=== PATIENT | female | born 1960 | race Caucasian/White ===

== ENCOUNTER 2017-11-19 16:07 | Inpatient (IN) | payer MEDICARE, OTHER ==
[~2017-11-19] VITALS: Ht 160 cm; Wt 119.8 kg
[~2017-11-19 16:07] MED LIST: AMOCLA875 PO; BCOIRO PO; BUPR150ER PO; BUPR150T2 PO; BUPR75 PO; Bactrim Ds Tab1 EACH PO; CEPH500 PO; CIPR.3TO OS; CIPR250 PO; CLIN300 PO; DULO60; GATI5OPSO OS; HYDACE25S PR; HYDACE5 PO; HYDACE5325 PO; HYDCOR1TOA TOP; HYDMOR2 PO; HYDR1TAB94 PO; HYOS.125 SL; IBUP600 PO; K-Dur20 MEQ PO; LEVSOD125; LEVSOD125 PO; LISI20 PO; LORA1 PO; Lasix20 MG PO; Lasix40 MG PO; Norco 5-325 Ta1 EACH PO; OXYACE10 PO; OXYACE5T PO; OXYC10ER PO; PROM25 PO; Pepcid40 MG PO; RXHYD5325 PO; RXHYDMOR2 PO; RXOXYACE PO; SPIR50 PO; SULTRIDS PO; Synthroid/Levo0.2 MG PO; Synthroid175 MCG PO; TRIHYD253A; [UNRECOGNIZED DRUG - REMARK]
[2017-11-19 16:46] LABS: BASOPHILS ABSOLUTE AUTO 0.03 K/mm3 (0.00-0.23); BASOPHILS PERCENT AUTO 1 % (0-2); EOSINOPHILS PERCENT AUTO 3 % (0-6); Hematocrit 30.1 % (33.0-51.0); Hemoglobin 9.9 g/dL (11.5-16.0); IMMATURE GRAN ABSOLUTE AUTO 0.08 K/mm3 (0.00-0.10); IMMATURE GRAN PERCENT AUTO 1 % (0-1); LYMPHOCYTES ABSOLUTE AUTO 1.53 K/mm3 (0.84-5.20); LYMPHOCYTES PERCENT AUTO 24 % (21-46); MONOCYTES ABSOLUTE AUTO 0.68 K/mm3 (0.16-1.47); MONOCYTES PERCENT AUTO 11 % (4-13); Mean Corpuscular HGB 30.8 pg (26.0-34.0); Mean Corpuscular HGB Conc 32.9 g/dL (31.5-36.5); Mean Corpuscular Volume 94 fL (80-100); NEUTROPHILS ABSOLUTE AUTO 3.83 K/mm3 (1.96-9.15); NEUTROPHILS PERCENT AUTO 60 % (41-73); Platelet Count 204 K/mm3 (150-400); RDW Coefficient Variation 19.8 % (11.7-14.2); RDW Standard Deviation 67.3 fL (35.1-46.3); Red Blood Cell Count 3.21 M/mm3 (3.80-5.20); White Blood Cell Count 6.35 K/mm3 (4.00-11.30)
[2017-11-19 16:50] LABS: Calcium, Ionized (POC) 1.15 mmol/L (1.10-1.46); Chloride (POC) 104 mmol/L (98-108); Creatinine (POC) 2.6 mg/dL (0.6-1.0); Glucose (ISTAT POC) 104 mg/dL (70-99); Hemoglobin (POC) 10.2 g/dL (12.0-16.0); Potassium (POC) 4.8 mmol/L (3.5-5.5); Sodium (POC) 132 mmol/L (135-148); Total CO2 (POC) 16 mmol/L (21-32)
[2017-11-19 16:54] LABS: PCO2 Arterial 27.8 mmHg (35-45); PO2 Arterial 111 mmHg (80-100); pH Blood Arterial 7.31 (7.35-7.45)
[2017-11-19 17:02] LABS: International Normalized Ratio 0.98; Prothrombin Time Results 10.2 Sec (9.7-11.5)
[2017-11-19 17:10] LABS: Albumin, Blood 3.2 g/dL (3.4-5.0); Bilirubin, Total 0.2 mg/dL (0.1-1.0); Bun/Creatinine Ratio 34.8 (12.0-20.0); Calcium, Blood 8.2 mg/dL (8.5-10.1); Creatinine, Blood 2.27 mg/dL (0.40-1.00); Globulin, Blood 3.3 g/dL (2.2-4.0); Potassium, Blood 4.7 mmol/L (3.5-5.5); Total Protein, Blood 6.5 g/dL (6.4-8.2)
[2017-11-19] MEDS ORDERED: CITA20 PO (17:21)
[2017-11-19] MEDS ORDERED: PROM25 PO (17:22)
[2017-11-19] MEDS ORDERED: DULOXETINE HCL20 MG PO (17:23)
[2017-11-19] MEDS ORDERED: FURO40 PO ×2 (17:23→21:18)
[2017-11-19 17:24] LABS: Influenza A Negative (NEGATIVE); Influenza B Negative (NEGATIVE)
[2017-11-19 17:38] LABS: Source, Urine Catheter
[2017-11-19 17:41] LABS: Blood, Urine 3+ (Neg); Glucose Qualitative, Urine Neg (Neg); Ketones, Urine Neg (Neg); Leukocyte Esterase, Urine Neg (Neg); Nitrite, Urine Neg (Neg); Protein, Urine 3+ (Neg); Urobilinogen, Urine NORM (Normal)
[2017-11-19 17:55] LABS: Appearance, Urine Hazy (Clear); Color, Urine Yellow (P-Yellow)
[2017-11-19 17:56] LABS: Amorphous Mod (0-Heavy); Bacteria Few /hpf; Red Blood Cells, Urine 0-2 /hpf (0-2); Squamous Epithelial Cells Mod /hpf (Few); White Blood Cells, Urine 0-2 /hpf (0-5)
[2017-11-19 18:40] LABS: Thyroid Stimulating Hormone 0.065 uIU/mL (0.360-4.800)
[2017-11-19 19:27] LABS: Percent Saturation 29.5 % (15.0-50.0)
[2017-11-19] MEDS ORDERED: ALPR.5 PO (21:15)
[2017-11-19] MEDS ORDERED: Excedrin Extra1 EACH PO (21:17)
[2017-11-19] MEDS ORDERED: HYDR1TAB94 PO (21:20)
[2017-11-19] MEDS ORDERED: FURO80 PO (21:25)
[2017-11-19] MEDS ORDERED: ALBU90OI INH (21:31)
[2017-11-20 01:58] LABS: U Amphetamine Screen Not Detected; U Barbituate Screen Not Detected; U Benzodiazapine Screen Not Detected; U Buprenorphine Screen Not Detected; U Cannabinoids Screen Not Detected; U Cocaine Screen Not Detected; U Methadone Screen Not Detected; U Methamphetamine Screen Not Detected; U Opiates Screen Not Detected; U Oxycodone Screen DETECTED; U Phencyclidine Screen Not Detected; U Propoxyphene Screen Not Detected
[2017-11-20 05:31] LABS: BASOPHILS ABSOLUTE AUTO 0.02 K/mm3 (0.00-0.23); BASOPHILS PERCENT AUTO 0 % (0-2); EOSINOPHILS ABSOLUTE AUTO 0.15 K/mm3 (0.00-0.68); EOSINOPHILS PERCENT AUTO 3 % (0-6); Hematocrit 29.1 % (33.0-51.0); Hemoglobin 9.3 g/dL (11.5-16.0); IMMATURE GRAN ABSOLUTE AUTO 0.07 K/mm3 (0.00-0.10); IMMATURE GRAN PERCENT AUTO 2 % (0-1); LYMPHOCYTES ABSOLUTE AUTO 0.83 K/mm3 (0.84-5.20); LYMPHOCYTES PERCENT AUTO 17 % (21-46); MONOCYTES ABSOLUTE AUTO 0.67 K/mm3 (0.16-1.47); MONOCYTES PERCENT AUTO 14 % (4-13); Mean Corpuscular HGB 30.7 pg (26.0-34.0); Mean Corpuscular Volume 96 fL (80-100); Mean Platelet Volume 8.8 fL (9.1-12.4); NEUTROPHILS ABSOLUTE AUTO 3.05 K/mm3 (1.96-9.15); NEUTROPHILS PERCENT AUTO 64 % (41-73); Platelet Count 175 K/mm3 (150-400); RDW Coefficient Variation 20.3 % (11.7-14.2); RDW Standard Deviation 70.6 fL (35.1-46.3); Red Blood Cell Count 3.03 M/mm3 (3.80-5.20); White Blood Cell Count 4.79 K/mm3 (4.00-11.30)
[2017-11-20 05:45] LABS: Albumin, Blood 2.9 g/dL (3.4-5.0); Anion Gap 9 mmol/L (6-16); Blood Urea Nitrogen 61 mg/dL (8-24); Bun/Creatinine Ratio 58.1 (12.0-20.0); CO2, Blood 21 mmol/L (21-32); Calcium, Blood 7.6 mg/dL (8.5-10.1); Chloride, Blood 110 mmol/L (98-108); Creatinine, Blood 1.05 mg/dL (0.40-1.00); Glomerular Filtration Rate 57 (60-); Glucose, Blood 106 mg/dL (70-99); Magnesium, Blood 1.9 mg/dL (1.6-2.4); Phosphorus, Blood 3.9 mg/dL (2.5-4.9); Potassium, Blood 4.1 mmol/L (3.5-5.5); Sodium, Blood 140 mmol/L (136-145)
[2018-05-20] MEDS ORDERED: CYCL10 PO (08:27)
[2018-05-20] MEDS ORDERED: Percocet 5-3251 EACH PO (08:27)
[2018-08-17] MEDS ORDERED: FURO40 PO (09:14)
[2018-08-17] MEDS ORDERED: LOSA50 PO (09:14)
[2018-08-17] MEDS ORDERED: LEVSOD150 PO (09:14)
[2018-08-17] MEDS ORDERED: Omeprazole20 M1 PO (09:15)
[2018-08-17] MEDS ORDERED: HYDR1TAB94 PO (11:11)
[2018-08-17] MEDS ORDERED: Ativan1 MG SL (11:11)
[2018-08-21] MEDS ORDERED: LORA1 PO (22:07)
[2018-08-21] MEDS ORDERED: SPIR50 PO (22:08)
[2018-09-16] MEDS ORDERED: DULO30 (11:00)
[2018-09-16] MEDS ORDERED: Zofran Odt4 MG SL (13:33)
[2018-09-16] MEDS ORDERED: K-Dur20 MEQ PO (13:33)
[2018-09-16] MEDS ORDERED: MAGOXI400 PO (13:33)
[2018-09-16] MEDS ORDERED: Lasix40 MG PO (13:33)
== END 2017-11-21 11:13 | disposition home or self-care (01) | DRG 683 ==
LOC: ER 16:07 → MEDS 18:27 → ER 20:44 → MEDS 20:44 → ENPENDDIS 11-21 11:13
PROVIDERS: Emergency Medicine; Internal Medicine
DX: N17.9 Acute kidney failure, unspecified (principal); I50.30 Unspecified diastolic (congestive) heart failure; E66.01 Morbid (severe) obesity due to excess calories; E87.2 Acidosis; I13.0 Hypertensive heart and chronic kidney disease with heart failure and stage 1 through stage 4 chronic kidney disease, or unspecified chronic kidney disease; D64.9 Anemia, unspecified; E86.0 Dehydration; I95.1 Orthostatic hypotension; F10.20 Alcohol dependence, uncomplicated; E03.9 Hypothyroidism, unspecified; G47.33 Obstructive sleep apnea (adult) (pediatric); N18.3 Chronic kidney disease, stage 3 (moderate); Z98.84 Bariatric surgery status; Z79.899 Other long term (current) drug therapy
CPT/HCPCS: 36415; 36600; 51702; 71045; 71250; 74176; 80047; 80053; 80069; 81001; 82272; 82550; 82607; 82728; 82746; 82803; 83540; 83550; 83605; 83735; 84443; 85014; 85025; 85610; 85730; 86850; 86900; 86901; 87040; 87077; 87086; 87186; 87493; 87804; 93005; 93010; 94762; 96361; 96374; 96375; 99285; C9113; G0480; J0696; J1650; J2405; J7030

== ENCOUNTER 2017-12-25 00:42 | Emergency (ER) | payer MEDICARE, OTHER ==
[~2017-12-25] VITALS: Ht 160 cm; Wt 113.4 kg
[~2017-12-25 00:42] MED LIST changes: +ALBU90OI INH; +ALPR.5 PO; +CITA20 PO; +DULOXETINE HCL20 MG PO; +Excedrin Extra1 EACH PO; +FURO40 PO; +FURO80 PO
[2017-12-25 01:16] LABS: BASOPHILS ABSOLUTE AUTO 0.07 K/mm3 (0.00-0.23); BASOPHILS PERCENT AUTO 1 % (0-2); EOSINOPHILS ABSOLUTE AUTO 0.62 K/mm3 (0.00-0.68); EOSINOPHILS PERCENT AUTO 9 % (0-6); Hematocrit 33.8 % (33.0-51.0); IMMATURE GRAN ABSOLUTE AUTO 0.06 K/mm3 (0.00-0.10); IMMATURE GRAN PERCENT AUTO 1 % (0-1); LYMPHOCYTES ABSOLUTE AUTO 2.43 K/mm3 (0.84-5.20); LYMPHOCYTES PERCENT AUTO 36 % (21-46); MONOCYTES PERCENT AUTO 9 % (4-13); Mean Corpuscular HGB 29.4 pg (26.0-34.0); Mean Corpuscular HGB Conc 32.5 g/dL (31.5-36.5); Mean Corpuscular Volume 90 fL (80-100); Mean Platelet Volume 8.4 fL (9.1-12.4); NEUTROPHILS ABSOLUTE AUTO 3.01 K/mm3 (1.96-9.15); NEUTROPHILS PERCENT AUTO 44 % (41-73); Platelet Count 256 K/mm3 (150-400); RDW Standard Deviation 53.4 fL (35.1-46.3); Red Blood Cell Count 3.74 M/mm3 (3.80-5.20); White Blood Cell Count 6.79 K/mm3 (4.00-11.30)
[2017-12-25 01:35] LABS: Alanine Aminotransfer (ALT/SGP 24 U/L (12-78); Albumin, Blood 3.4 g/dL (3.4-5.0); Albumin/Globulin Ratio 0.8 (0.8-1.8); Alk Phos 109 U/L (50-136); Anion Gap 13 mmol/L (6-16); Aspartate Aminotrans (AST/SGOT 32 U/L (12-37); Bilirubin, Total 0.3 mg/dL (0.1-1.0); Blood Urea Nitrogen 25 mg/dL (8-24); Bun/Creatinine Ratio 30.6 (12.0-20.0); CO2, Blood 21 mmol/L (21-32); Calcium, Blood 8.2 mg/dL (8.5-10.1); Chloride, Blood 99 mmol/L (98-108); Creatinine, Blood 0.82 mg/dL (0.40-1.00); Globulin, Blood 4.1 g/dL (2.2-4.0); Glomerular Filtration Rate >60 (60-); Glucose, Blood 92 mg/dL (70-99); Potassium, Blood 3.7 mmol/L (3.5-5.5); Sodium, Blood 133 mmol/L (136-145); Total Protein, Blood 7.5 g/dL (6.4-8.2); Troponin I <0.015 ng/mL (0.000-0.040)
[2018-05-20] MEDS ORDERED: Percocet 5-3251 EACH PO (08:27)
[2018-05-20] MEDS ORDERED: CYCL10 PO (08:27)
[2018-08-17] MEDS ORDERED: LEVSOD150 PO (09:14)
[2018-08-17] MEDS ORDERED: FURO40 PO (09:14)
[2018-08-17] MEDS ORDERED: LOSA50 PO (09:14)
[2018-08-17] MEDS ORDERED: Omeprazole20 M1 PO (09:15)
[2018-08-17] MEDS ORDERED: Ativan1 MG SL (11:11)
[2018-08-17] MEDS ORDERED: HYDR1TAB94 PO (11:11)
[2018-08-21] MEDS ORDERED: LORA1 PO (22:07)
[2018-08-21] MEDS ORDERED: SPIR50 PO (22:08)
[2018-09-16] MEDS ORDERED: DULO30 (11:00)
[2018-09-16] MEDS ORDERED: MAGOXI400 PO (13:33)
[2018-09-16] MEDS ORDERED: Zofran Odt4 MG SL (13:33)
[2018-09-16] MEDS ORDERED: Lasix40 MG PO (13:33)
[2018-09-16] MEDS ORDERED: K-Dur20 MEQ PO (13:33)
== END 2017-12-25 03:30 | disposition home or self-care (01) ==
LOC: ER 00:42
PROVIDERS: Emergency Medicine
DX: M79.601 Pain in right arm (principal); I13.0 Hypertensive heart and chronic kidney disease with heart failure and stage 1 through stage 4 chronic kidney disease, or unspecified chronic kidney disease; I50.9 Heart failure, unspecified; N18.3 Chronic kidney disease, stage 3 (moderate); F32.9 Major depressive disorder, single episode, unspecified; Z79.899 Other long term (current) drug therapy; Z87.891 Personal history of nicotine dependence
CPT/HCPCS: 36415; 71046; 80053; 83690; 83880; 84484; 85025; 93005; 93010; 99283

== ENCOUNTER 2018-06-18 09:56 | Emergency (ER) | payer MEDICARE ==
[~2018-06-18] VITALS: Ht 160 cm; Wt 124.7 kg
[~2018-06-18 09:56] MED LIST changes: +CYCL10 PO; +Percocet 5-3251 EACH PO
== END 2018-06-18 10:55 | disposition home or self-care (01) ==
LOC: ER 09:56
DX: S80.01XA Contusion of right knee, initial encounter (principal); F32.9 Major depressive disorder, single episode, unspecified; I11.0 Hypertensive heart disease with heart failure; I50.9 Heart failure, unspecified; N18.9 Chronic kidney disease, unspecified; E03.9 Hypothyroidism, unspecified; Z79.899 Other long term (current) drug therapy; Z87.891 Personal history of nicotine dependence; W19.XXXA Unspecified fall, initial encounter
CPT/HCPCS: 73564; 99283-25

== ENCOUNTER 2018-12-09 08:13 | Emergency (ER) | payer MEDICARE, SELFPAY ==
[~2018-12-09] VITALS: Ht 160 cm; Wt 128.8 kg
[~2018-12-09 08:13] MED LIST changes: +Ativan1 MG SL; +DULO30; +LEVSOD150 PO; +LOSA50 PO; +MAGOXI400 PO; +Omeprazole20 M1 PO; +Zofran Odt4 MG SL
[2018-12-09] MEDS ORDERED: HYDHCL25 PO (08:37)
[2018-12-09] MEDS ORDERED: DULOXETINE HCL20 MG PO (08:38)
[2018-12-09] MEDS ORDERED: LEVSOD150 PO (08:38)
[2018-12-09] MEDS ORDERED: Vitamin B-121000 MCG PO (08:38)
[2018-12-09 08:52] LABS: BASOPHILS ABSOLUTE AUTO 0.12 K/mm3 (0.00-0.23); BASOPHILS PERCENT AUTO 2 % (0-2); EOSINOPHILS ABSOLUTE AUTO 0.44 K/mm3 (0.00-0.68); EOSINOPHILS PERCENT AUTO 6 % (0-6); Hematocrit 40.5 % (33.0-51.0); IMMATURE GRAN ABSOLUTE AUTO 0.03 K/mm3 (0.00-0.10); IMMATURE GRAN PERCENT AUTO 0 % (0-1); LYMPHOCYTES ABSOLUTE AUTO 1.71 K/mm3 (0.84-5.20); LYMPHOCYTES PERCENT AUTO 24 % (21-46); MONOCYTES ABSOLUTE AUTO 0.62 K/mm3 (0.16-1.47); MONOCYTES PERCENT AUTO 9 % (4-13); Mean Corpuscular HGB 31.9 pg (26.0-34.0); Mean Corpuscular HGB Conc 32.1 g/dL (31.5-36.5); Mean Corpuscular Volume 100 fL (80-100); Mean Platelet Volume 9.3 fL (9.1-12.4); NEUTROPHILS ABSOLUTE AUTO 4.24 K/mm3 (1.96-9.15); NEUTROPHILS PERCENT AUTO 59 % (41-73); Platelet Count 447 K/mm3 (150-400); RDW Coefficient Variation 15.3 % (11.7-14.2); RDW Standard Deviation 56.2 fL (35.1-46.3); Red Blood Cell Count 4.07 M/mm3 (3.80-5.20); White Blood Cell Count 7.16 K/mm3 (4.00-11.30)
[2018-12-09 08:57] LABS: Source, Urine Clean Catch
[2018-12-09 09:07] LABS: Blood, Urine 1+ (Neg); Glucose Qualitative, Urine Neg (Neg); Ketones, Urine 1+ (Neg); Leukocyte Esterase, Urine 3+ (Neg); Nitrite, Urine Pos (Neg); Protein, Urine 2+ (Neg); Urobilinogen, Urine 1+ (Normal)
[2018-12-09 09:13] LABS: Alanine Aminotransfer (ALT/SGP 22 U/L (12-78); Albumin/Globulin Ratio 0.8 (0.8-1.8); Alk Phos 221 U/L (50-136); Anion Gap 14 mmol/L (6-16); Aspartate Aminotrans (AST/SGOT 58 U/L (12-37); Bilirubin, Total 0.7 mg/dL (0.1-1.0); Blood Urea Nitrogen 3 mg/dL (8-24); Bun/Creatinine Ratio 5.3 (12.0-20.0); CO2, Blood 22 mmol/L (21-32); Calcium, Blood 8.6 mg/dL (8.5-10.1); Chloride, Blood 104 mmol/L (98-108); Creatinine, Blood 0.57 mg/dL (0.40-1.00); Globulin, Blood 3.8 g/dL (2.2-4.0); Glomerular Filtration Rate >60 (60-); Glucose, Blood 105 mg/dL (70-99); Sodium, Blood 140 mmol/L (136-145); Total Protein, Blood 6.8 g/dL (6.4-8.2); Troponin I 0.015 ng/mL (0.000-0.040)
[2018-12-09 09:38] LABS: Bilirubin, Urine 1+ (Neg)
[2018-12-09 09:39] LABS: Appearance, Urine Turbid (Clear); Color, Urine Yellow (P-Yellow)
[2018-12-09 09:41] LABS: Bacteria Many /hpf; Red Blood Cells, Urine 0-2 /hpf (0-2); Squamous Epithelial Cells Many /hpf (Few); White Blood Cells, Urine 25-50 /hpf (0-5)
[2018-12-09] MEDS ORDERED: Zofran4 MG PO (10:47)
[2018-12-09] MEDS ORDERED: Macrobid 100 M100 MG PO (10:47)
== END 2018-12-09 11:04 | disposition home or self-care (01) ==
LOC: ER 08:13
PROVIDERS: Emergency Medicine
DX: K44.9 Diaphragmatic hernia without obstruction or gangrene (principal); K76.0 Fatty (change of) liver, not elsewhere classified; E87.6 Hypokalemia; F32.9 Major depressive disorder, single episode, unspecified; I13.0 Hypertensive heart and chronic kidney disease with heart failure and stage 1 through stage 4 chronic kidney disease, or unspecified chronic kidney disease; I50.9 Heart failure, unspecified; N18.9 Chronic kidney disease, unspecified; E03.9 Hypothyroidism, unspecified; Z87.891 Personal history of nicotine dependence; Z79.899 Other long term (current) drug therapy
CPT/HCPCS: 36415; 74177; 80053; 81001; 83690; 83735; 83880; 84484; 85025; 87077; 87086; 87186; 93005; 93010; 96361-59; 96374-59; 96376-59; 99284-25; J2405; J7030; Q9967

== ENCOUNTER 2018-12-13 17:34 | Inpatient (IN) | payer MEDICARE, SELFPAY ==
[~2018-12-13] VITALS: Ht 160 cm; Wt 128.4 kg
[~2018-12-13 17:34] MED LIST changes: +HYDHCL25 PO; +Macrobid 100 M100 MG PO; +Vitamin B-121000 MCG PO; +Zofran4 MG PO
[2018-12-13 18:10] LABS: Source, Urine Clean Catch
[2018-12-13 18:21] LABS: BASOPHILS ABSOLUTE AUTO 0.09 K/mm3 (0.00-0.23); BASOPHILS PERCENT AUTO 1 % (0-2); EOSINOPHILS PERCENT AUTO 2 % (0-6); Hematocrit 39.1 % (33.0-51.0); Hemoglobin 12.8 g/dL (11.5-16.0); IMMATURE GRAN ABSOLUTE AUTO 0.05 K/mm3 (0.00-0.10); IMMATURE GRAN PERCENT AUTO 1 % (0-1); LYMPHOCYTES ABSOLUTE AUTO 1.41 K/mm3 (0.84-5.20); LYMPHOCYTES PERCENT AUTO 17 % (21-46); MONOCYTES ABSOLUTE AUTO 0.71 K/mm3 (0.16-1.47); MONOCYTES PERCENT AUTO 8 % (4-13); Mean Corpuscular HGB 31.7 pg (26.0-34.0); Mean Corpuscular HGB Conc 32.7 g/dL (31.5-36.5); Mean Platelet Volume 9.3 fL (9.1-12.4); NEUTROPHILS ABSOLUTE AUTO 5.97 K/mm3 (1.96-9.15); NEUTROPHILS PERCENT AUTO 71 % (41-73); Platelet Count 401 K/mm3 (150-400); RDW Coefficient Variation 15.7 % (11.7-14.2); RDW Standard Deviation 56.1 fL (35.1-46.3); Red Blood Cell Count 4.04 M/mm3 (3.80-5.20); White Blood Cell Count 8.43 K/mm3 (4.00-11.30)
[2018-12-13 18:32] LABS: Alanine Aminotransfer (ALT/SGP 24 U/L (12-78); Albumin, Blood 2.8 g/dL (3.4-5.0); Albumin/Globulin Ratio 0.8 (0.8-1.8); Alk Phos 237 U/L (50-136); Anion Gap 10 mmol/L (6-16); Aspartate Aminotrans (AST/SGOT 79 U/L (12-37); Bilirubin, Total 0.8 mg/dL (0.1-1.0); Blood Urea Nitrogen 3 mg/dL (8-24); Bun/Creatinine Ratio 6.4 (12.0-20.0); CO2, Blood 24 mmol/L (21-32); Calcium, Blood 8.5 mg/dL (8.5-10.1); Chloride, Blood 104 mmol/L (98-108); Creatinine, Blood 0.47 mg/dL (0.40-1.00); Globulin, Blood 3.5 g/dL (2.2-4.0); Glomerular Filtration Rate >60 (60-); Glucose, Blood 111 mg/dL (70-99); Potassium, Blood 2.8 mmol/L (3.5-5.5); Sodium, Blood 138 mmol/L (136-145); Total Protein, Blood 6.3 g/dL (6.4-8.2)
[2018-12-13 18:36] LABS: Appearance, Urine Hazy (Clear); Blood, Urine 1+ (Neg); Color, Urine Yellow (P-Yellow); Glucose Qualitative, Urine Neg (Neg); Ketones, Urine 1+ (Neg); Leukocyte Esterase, Urine 2+ (Neg); Nitrite, Urine Neg (Neg); Protein, Urine 2+ (Neg); Specific Gravity, Urine 1.025 (1.003-1.022); Urobilinogen, Urine 3+ (Normal)
[2018-12-13 18:45] LABS: Mean Corpuscular Volume 97 fL (80-100)
[2018-12-13 18:54] LABS: Bilirubin, Urine 2+ (Neg)
[2018-12-13 18:57] LABS: Bacteria Many /hpf; Squamous Epithelial Cells Few /hpf (Few); Yeast/Fungi Urine Few /hpf
[2018-12-13 20:51] LABS: Influenza A Negative (NEGATIVE); Influenza B Negative (NEGATIVE)
[2018-12-14 04:58] LABS: BASOPHILS ABSOLUTE AUTO 0.07 K/mm3 (0.00-0.23); BASOPHILS PERCENT AUTO 1 % (0-2); EOSINOPHILS ABSOLUTE AUTO 0.23 K/mm3 (0.00-0.68); EOSINOPHILS PERCENT AUTO 3 % (0-6); Hematocrit 36.5 % (33.0-51.0); IMMATURE GRAN ABSOLUTE AUTO 0.03 K/mm3 (0.00-0.10); IMMATURE GRAN PERCENT AUTO 0 % (0-1); LYMPHOCYTES ABSOLUTE AUTO 1.56 K/mm3 (0.84-5.20); LYMPHOCYTES PERCENT AUTO 21 % (21-46); MONOCYTES ABSOLUTE AUTO 0.74 K/mm3 (0.16-1.47); MONOCYTES PERCENT AUTO 10 % (4-13); Mean Corpuscular HGB 32.3 pg (26.0-34.0); Mean Corpuscular HGB Conc 32.9 g/dL (31.5-36.5); Mean Corpuscular Volume 98 fL (80-100); Mean Platelet Volume 9.2 fL (9.1-12.4); NEUTROPHILS ABSOLUTE AUTO 4.66 K/mm3 (1.96-9.15); NEUTROPHILS PERCENT AUTO 64 % (41-73); Platelet Count 331 K/mm3 (150-400); RDW Coefficient Variation 15.6 % (11.7-14.2); RDW Standard Deviation 56.9 fL (35.1-46.3); Red Blood Cell Count 3.72 M/mm3 (3.80-5.20); White Blood Cell Count 7.29 K/mm3 (4.00-11.30)
[2018-12-14 05:19] LABS: Anion Gap 7 mmol/L (6-16); Blood Urea Nitrogen 3 mg/dL (8-24); Bun/Creatinine Ratio 5.6 (12.0-20.0); CO2, Blood 26 mmol/L (21-32); Chloride, Blood 107 mmol/L (98-108); Creatinine, Blood 0.54 mg/dL (0.40-1.00); Glomerular Filtration Rate >60 (60-); Glucose, Blood 86 mg/dL (70-99); Potassium, Blood 3.3 mmol/L (3.5-5.5); Sodium, Blood 140 mmol/L (136-145)
[2018-12-14 14:00] LABS: U Amphetamine Screen Not Detected; U Barbituate Screen Not Detected; U Benzodiazapine Screen DETECTED; U Buprenorphine Screen Not Detected; U Cannabinoids Screen Not Detected; U Cocaine Screen Not Detected; U Methadone Screen Not Detected; U Methamphetamine Screen Not Detected; U Opiates Screen Not Detected; U Oxycodone Screen Not Detected; U Phencyclidine Screen Not Detected; U Propoxyphene Screen Not Detected
[2018-12-14 15:25] LABS: Adenovirus F 40/41 Not Detected (NOT DETECT); Astrovirus Not Detected (NOT DETECT); Campylobacter Sp Not Detected (NOT DETECT); Cryptosporidium Not Detected (NOT DETECT); Cyclospora Cayetanensis Not Detected (NOT DETECT); E. Coli O157 Not Detected (NOT DETECT); Entamoeba Histolytica Not Detected (NOT DETECT); Enteroaggregative E. coli-EAEC Not Detected (NOT DETECT); Enteropathogenic E. coli-EPEC Not Detected (NOT DETECT); Enterotoxigenic E. coli-ETEC Not Detected (NOT DETECT); Giardia Lamblia Not Detected (NOT DETECT); Norovirus GI/GII Not Detected (NOT DETECT); Plesiomonas Shigelloides Not Detected (NOT DETECT); Rotavirus A Not Detected (NOT DETECT); Salmonella Sp Not Detected (NOT DETECT); Sapovirus Not Detected (NOT DETECT); Shiga Toxin-prod E. coli-STEC Not Detected (NOT DETECT); Shigella/Enteroin E. coli-EIEC Not Detected (NOT DETECT); Vibrio Cholerae Not Detected (NOT DETECT); Vibrio Sp Not Detected (NOT DETECT); Yersinia Enterocolitica Not Detected (NOT DETECT)
--- NOTE | 2018-12-14 17:17 | NUR ---
PATIENT ADMITTED FOR UTI AND PERSISENT N/V/D. GI PANEL SENT AND IT WAS NEGATIVE. PATIENT HAS NOT VOMITTED SINCE ADMISSION, PHENERGAN GIVEN X1 FOR NAUSEA. SKIN INTACT. 22G TO L HAND WNL AND SL. A/O X4, UP INDEPENDENTLY IN ROOM. CALM AND COOPERATIVE WITH CARE. CALLS APPROPRIATELY FOR ASSISTANCE. DR. CALVILLO CONTACTED TO CONSULT FOR THIS PATIENT. VSS, LUNGS CLEAR/DIM ON RA. TOLERATING CLEAR LIQUID DIET.
--- NOTE | 2018-12-14 18:50 | NUR ---
PATIENT HAVING FACIAL SWELLING AND ITCHING AFTER VANCOMYCIN GIVEN. DR. PURCELL NOTIFIED AND VANCOMYCIN WAS STOPPED. BENADRYL ORDERED TO TREAT ITCHING.
[2018-12-15 02:13] LABS: BASOPHILS ABSOLUTE AUTO 0.06 K/mm3 (0.00-0.23); BASOPHILS PERCENT AUTO 1 % (0-2); EOSINOPHILS ABSOLUTE AUTO 0.32 K/mm3 (0.00-0.68); EOSINOPHILS PERCENT AUTO 5 % (0-6); Hematocrit 33.6 % (33.0-51.0); IMMATURE GRAN ABSOLUTE AUTO 0.03 K/mm3 (0.00-0.10); IMMATURE GRAN PERCENT AUTO 1 % (0-1); LYMPHOCYTES ABSOLUTE AUTO 1.29 K/mm3 (0.84-5.20); LYMPHOCYTES PERCENT AUTO 22 % (21-46); MONOCYTES ABSOLUTE AUTO 0.66 K/mm3 (0.16-1.47); MONOCYTES PERCENT AUTO 11 % (4-13); Mean Corpuscular HGB 32.6 pg (26.0-34.0); Mean Corpuscular HGB Conc 32.7 g/dL (31.5-36.5); Mean Corpuscular Volume 100 fL (80-100); Mean Platelet Volume 9.2 fL (9.1-12.4); NEUTROPHILS PERCENT AUTO 60 % (41-73); Platelet Count 268 K/mm3 (150-400); RDW Coefficient Variation 15.9 % (11.7-14.2); RDW Standard Deviation 58.5 fL (35.1-46.3); Red Blood Cell Count 3.37 M/mm3 (3.80-5.20); White Blood Cell Count 5.96 K/mm3 (4.00-11.30)
[2018-12-15 02:27] LABS: Albumin, Blood 2.4 g/dL (3.4-5.0); Anion Gap 5 mmol/L (6-16); Blood Urea Nitrogen 2 mg/dL (8-24); Bun/Creatinine Ratio 3.5 (12.0-20.0); CO2, Blood 29 mmol/L (21-32); Calcium, Blood 7.9 mg/dL (8.5-10.1); Chloride, Blood 112 mmol/L (98-108); Creatinine, Blood 0.58 mg/dL (0.40-1.00); Glomerular Filtration Rate >60 (60-); Glucose, Blood 82 mg/dL (70-99); Phosphorus, Blood 2.1 mg/dL (2.5-4.9); Potassium, Blood 3.1 mmol/L (3.5-5.5); Sodium, Blood 146 mmol/L (136-145)
[2018-12-15 02:30] LABS: Vancomycin, Trough 15.2 ug/mL (5.0-10.0)
--- NOTE | 2018-12-15 04:23 | NUR ---
SHIFT SUMMARY NO ACUTE CHANGES. PATIENT MEDICATED X 1 FOR HEADACHE. PATIENT SLEPT MOST OF NIGHT. NPO AFTER MIDNIGHT FOR ENDOSCOPY. PATIENT INDEPENDENT IN ROOM. CALL LIGHT IN REACH, WILL CONTINUE TO MONITOR.
--- NOTE | 2018-12-15 13:42 | NUR ---
12/15/18 1342 Ravi Hampton 3-LEAD EKG REVIEWED WITH PHYSICIAN PRIOR TO START OF PROCEDURE.PATIENT CONFIRMS NPO STATUS AND AGREES WITH SCHEDULED PROCEDURE.History, Chart, Medications and Allergies reviewed before start of procedure. MONITOR INTACT WITH CONTINUOUS PULSE OXIMETRY AND INTERMITTENT BP. O2 VIA N/C INTACT THROUGHOUT SEDATION/PROCEDURE. Bite Block Placed
--- NOTE | 2018-12-15 18:55 | NUR ---
PT. LYING IN BED REPORTING HEADACHE ONCE AGAIN. 650 MG OF TYLENOL GIVEN. PT. HAD AN ENDOSCOPY TODAY, SHOWED ESOPHAGITIS. NO OTHER ABNORMALITY NOTED PER SHOW WORKER. NO S/S OF ETOH WD THIS SHIFT.
--- NOTE | 2018-12-16 05:33 | NUR ---
SHIFT SUMMARY THE PT ADMITTED FOR UTI. FULL CIDE. LOW FAT DIET. NO MECHANICAL VTE PROPHYLAXIS. LOVENOX. 20 G IV TO L AC. INDEPENDENT IN ROOM. MEDS WHOLE WITH WATER. CONTACT ISOLATION FOR ESBL IN URINE. CIWA SCORES HAVE BEEN 0. THE PT PRESENTED TO THE ED WITH C/O NAUSEA, VOMITING, AND URINARY URGENCY. 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 THE PT REPORTS PERSISTENT NAUSEA AND INABILITY TO KEEP FOODS DOWN AND UNABLE TO EAT REGULAR MEALS X6 WEEKS. AFTER GASTRIC BYPASS THE PT INITIALLY LOST 100 POUNDS BUT HAS RECENTLY BEGAN PUTTING BACK ON THE WEIGHT. THE PT WAS NOTED TO HAVE SOME FACIAL SWELLING FOLLOWING ADMINISTRATION OF VANCO. THE PT UNDERWENT ENDO YESTERDAY AND NOTED TO HAVE ESOPHEGITIS AND RECOMMENDS SMALL FREQUENT LOW FAT MEALS. THE PT HAS BEEN PLEASENT, COOPERATIVE, ALERT AND ORIENTED WITH CARE SO FAR THIS SHIFT. THE PT HAS REPORTED NO C/O NAUSEA, VOMITING, OR PAIN SO FAR THIS SHIFT. THE PT HAS APPEARED TO SLEEP COMFORTABLY MOST OF THE NIGHT WITH NO APPARENT SIGNS OF ACUTE DISTRESS. ABLE TO MAKE NEEDS KNOWN AND CALL LIGHT IN REACH.
[2018-12-16] MEDS ORDERED: Cefpodoxime Pr100 MG PO (11:35)
--- NOTE | 2018-12-16 12:00 | NUR ---
PT. DISCHARGED HOME WITH INSTRUCTIONS TO FOLLOW UP WITH HER PCP AND GI DOCTOR. PT. VERBALIZED UNDERSTANDING OF DISCHARGE INSTRUCTIONS.
[2018-12-19 08:12] LABS: HBSAG SCREEN Negative (Negative); HEP B CORE AB, TOT Negative (Negative); HEP C VIRUS AB <0.1 (0.0-0.9)
== END 2018-12-16 11:58 | disposition home or self-care (01) | DRG 690 ==
LOC: ER 17:34 → MEDS 17:35 → ERHOLD 17:35 → MEDS 12-14 10:24 → ENPENDDIS 12-16 10:30 → MEDS 12-16 11:58
PROVIDERS: Emergency Medicine; Internal Medicine; Internal Medicine Gastroenterology; Nurse Practitioner Acute Care; ADMIT Family Medicine
PROC: 0DJ08ZZ Inspection of Upper Intestinal Tract, Via Natural or Artificial Opening Endoscopic (ICD-10-PCS; principal; 2018-12-15 13:00)
DX: N39.0 Urinary tract infection, site not specified (principal); Z68.43 Body mass index [BMI] 50.0-59.9, adult; I50.32 Chronic diastolic (congestive) heart failure; K22.10 Ulcer of esophagus without bleeding; E03.9 Hypothyroidism, unspecified; Z96.651 Presence of right artificial knee joint; Z87.891 Personal history of nicotine dependence; E66.01 Morbid (severe) obesity due to excess calories; E87.6 Hypokalemia; G47.33 Obstructive sleep apnea (adult) (pediatric); Z98.84 Bariatric surgery status; F32.9 Major depressive disorder, single episode, unspecified; E83.42 Hypomagnesemia; R22.0 Localized swelling, mass and lump, head; T36.8X5A Adverse effect of other systemic antibiotics, initial encounter; Y92.239 Unspecified place in hospital as the place of occurrence of the external cause; K44.9 Diaphragmatic hernia without obstruction or gangrene; F10.20 Alcohol dependence, uncomplicated; I11.0 Hypertensive heart disease with heart failure
CPT/HCPCS: 36415; 71045; 74018; 80048; 80053; 80069; 80202; 81001; 83690; 83735; 84132; 84484; 85025; 86317; 86704; 86708; 86803; 87077; 87086; 87186; 87340; 87507; 87804; 90686; 96361; 96365; 96366; 96367; 96368; 96372; 96375; 96376; 99285-25; C9113; G0378; J0696; J1650; J2405; J2550; J3370; J3475; J7030; J7050; J7060; J7120; Q0163

== ENCOUNTER 2019-03-12 16:29 | Emergency (ER) | payer MEDICARE, SELFPAY ==
[~2019-03-12] VITALS: Ht 162.6 cm; Wt 120.2 kg
[~2019-03-12 16:29] MED LIST changes: +ALBU90OI61 INH; +CEFU500T30 PO; +Cefpodoxime Pr100 MG PO; +FURO20 PO; +LEVSOD50 PO; +Nitrofurantoin50 MG PO; +OMEPRAZOLE MAGN20 MG PO; +ONDA8 PO; +ZOLP5 PO
[2019-03-12 17:26] LABS: BASOPHILS ABSOLUTE AUTO 0.06 K/mm3 (0.00-0.23); BASOPHILS PERCENT AUTO 1 % (0-2); EOSINOPHILS ABSOLUTE AUTO 0.27 K/mm3 (0.00-0.68); EOSINOPHILS PERCENT AUTO 4 % (0-6); Hematocrit 34.8 % (33.0-51.0); Hemoglobin 11.1 g/dL (11.5-16.0); IMMATURE GRAN ABSOLUTE AUTO 0.04 K/mm3 (0.00-0.10); IMMATURE GRAN PERCENT AUTO 1 % (0-1); LYMPHOCYTES ABSOLUTE AUTO 1.87 K/mm3 (0.84-5.20); LYMPHOCYTES PERCENT AUTO 26 % (21-46); MONOCYTES ABSOLUTE AUTO 0.76 K/mm3 (0.16-1.47); MONOCYTES PERCENT AUTO 11 % (4-13); Mean Corpuscular HGB 30.6 pg (26.0-34.0); Mean Corpuscular HGB Conc 31.9 g/dL (31.5-36.5); Mean Corpuscular Volume 96 fL (80-100); Mean Platelet Volume 9.3 fL (9.1-12.4); NEUTROPHILS ABSOLUTE AUTO 4.15 K/mm3 (1.96-9.15); NEUTROPHILS PERCENT AUTO 58 % (41-73); Platelet Count 249 K/mm3 (150-400); RDW Coefficient Variation 15.9 % (11.7-14.2); RDW Standard Deviation 55.7 fL (35.1-46.3); Red Blood Cell Count 3.63 M/mm3 (3.80-5.20); White Blood Cell Count 7.15 K/mm3 (4.00-11.30)
[2019-03-12 17:35] LABS: Alanine Aminotransfer (ALT/SGP 62 U/L (12-78); Albumin, Blood 2.6 g/dL (3.4-5.0); Albumin/Globulin Ratio 0.7 (0.8-1.8); Alk Phos 335 U/L (50-136); Anion Gap 13 mmol/L (6-16); Aspartate Aminotrans (AST/SGOT 222 U/L (12-37); Bilirubin, Total 0.4 mg/dL (0.1-1.0); Blood Urea Nitrogen 4 mg/dL (8-24); Bun/Creatinine Ratio 9.3 (12.0-20.0); CO2, Blood 20 mmol/L (21-32); Calcium, Blood 8.2 mg/dL (8.5-10.1); Chloride, Blood 109 mmol/L (98-108); Creatinine, Blood 0.43 mg/dL (0.40-1.00); Globulin, Blood 3.6 g/dL (2.2-4.0); Glomerular Filtration Rate >60 (60-); Glucose, Blood 104 mg/dL (70-99); Magnesium, Blood 1.5 mg/dL (1.6-2.4); Potassium, Blood 2.9 mmol/L (3.5-5.5); Sodium, Blood 142 mmol/L (136-145); Total Protein, Blood 6.2 g/dL (6.4-8.2); Troponin I 0.021 ng/mL (0.000-0.040)
[2019-03-12 18:43] LABS: Source, Urine Clean Catch
[2019-03-12 18:48] LABS: Bilirubin, Urine Neg (Neg); Blood, Urine Neg (Neg); Glucose Qualitative, Urine Neg (Neg); Ketones, Urine Neg (Neg); Leukocyte Esterase, Urine 1+ (Neg); Nitrite, Urine Neg (Neg); Protein, Urine 1+ (Neg); Specific Gravity, Urine 1.015 (1.003-1.022); Urobilinogen, Urine 1+ (Normal)
[2019-03-12 19:00] LABS: Appearance, Urine Clear (Clear); Color, Urine Yellow (P-Yellow); Red Blood Cells, Urine 0-2 /hpf (0-2); Squamous Epithelial Cells Many /hpf (Few)
[2019-03-12 19:01] LABS: Bacteria Many /hpf; Hyaline Casts 25-50 /lpf (0-2)
[2019-03-12 19:09] LABS: U Amphetamine Screen Not Detected; U Barbituate Screen Not Detected; U Benzodiazapine Screen Not Detected; U Buprenorphine Screen Not Detected; U Cannabinoids Screen Not Detected; U Cocaine Screen Not Detected; U Methadone Screen Not Detected; U Methamphetamine Screen Not Detected; U Opiates Screen Not Detected; U Oxycodone Screen Not Detected; U Phencyclidine Screen Not Detected; U Propoxyphene Screen Not Detected
== END 2019-03-12 19:28 | disposition home or self-care (01) ==
LOC: ER 16:29
PROVIDERS: Emergency Medicine
DX: E87.6 Hypokalemia (principal); E83.42 Hypomagnesemia; R42 Dizziness and giddiness; F10.229 Alcohol dependence with intoxication, unspecified; Y90.6 Blood alcohol level of 120-199 mg/100 ml; E46 Unspecified protein-calorie malnutrition; Z68.42 Body mass index [BMI] 45.0-49.9, adult; Z88.1 Allergy status to other antibiotic agents; Z79.899 Other long term (current) drug therapy; Z79.82 Long term (current) use of aspirin; F32.9 Major depressive disorder, single episode, unspecified; I11.0 Hypertensive heart disease with heart failure; I50.9 Heart failure, unspecified; Z87.891 Personal history of nicotine dependence
CPT/HCPCS: 36415; 80053; 81001; 83735; 83880; 84484; 85025; 87077; 87086; 87186; 93005; 93010; 96365; 96368; 99284-25; G0480; J3475; J3480

== ENCOUNTER 2019-04-12 21:22 | Inpatient (IN) | payer MEDICARE, SELFPAY ==
[~2019-04-12] VITALS: Ht 160 cm; Wt 113.4 kg
[~2019-04-12 21:22] MED LIST changes: +NITR100CA PO; +ONDA4ODT MM
[2019-04-12 22:12] LABS: BASOPHILS ABSOLUTE AUTO 0.06 K/mm3 (0.00-0.23); BASOPHILS PERCENT AUTO 1 % (0-2); EOSINOPHILS ABSOLUTE AUTO 0.26 K/mm3 (0.00-0.68); EOSINOPHILS PERCENT AUTO 3 % (0-6); Hematocrit 37.5 % (33.0-51.0); Hemoglobin 12.4 g/dL (11.5-16.0); IMMATURE GRAN ABSOLUTE AUTO 0.02 K/mm3 (0.00-0.10); IMMATURE GRAN PERCENT AUTO 0 % (0-1); LYMPHOCYTES ABSOLUTE AUTO 1.91 K/mm3 (0.84-5.20); LYMPHOCYTES PERCENT AUTO 21 % (21-46); MONOCYTES ABSOLUTE AUTO 1.01 K/mm3 (0.16-1.47); MONOCYTES PERCENT AUTO 11 % (4-13); Mean Corpuscular HGB 29.2 pg (26.0-34.0); Mean Corpuscular HGB Conc 33.1 g/dL (31.5-36.5); Mean Corpuscular Volume 88 fL (80-100); Mean Platelet Volume 10.5 fL (9.1-12.4); NEUTROPHILS ABSOLUTE AUTO 5.81 K/mm3 (1.96-9.15); NEUTROPHILS PERCENT AUTO 64 % (41-73); Platelet Count 233 K/mm3 (150-400); RDW Coefficient Variation 17.9 % (11.7-14.2); RDW Standard Deviation 57.6 fL (35.1-46.3); Red Blood Cell Count 4.25 M/mm3 (3.80-5.20); White Blood Cell Count 9.07 K/mm3 (4.00-11.30)
[2019-04-12 22:28] LABS: Alanine Aminotransfer (ALT/SGP 28 U/L (12-78); Albumin, Blood 2.6 g/dL (3.4-5.0); Albumin/Globulin Ratio 0.7 (0.8-1.8); Alk Phos 297 U/L (50-136); Anion Gap 8 mmol/L (6-16); Aspartate Aminotrans (AST/SGOT 130 U/L (12-37); Bilirubin, Total 1.3 mg/dL (0.1-1.0); Blood Urea Nitrogen 4 mg/dL (8-24); Bun/Creatinine Ratio 5.8 (12.0-20.0); CO2, Blood 30 mmol/L (21-32); Calcium, Blood 8.3 mg/dL (8.5-10.1); Chloride, Blood 102 mmol/L (98-108); Creatinine, Blood 0.68 mg/dL (0.40-1.00); Globulin, Blood 3.7 g/dL (2.2-4.0); Glomerular Filtration Rate >60 (60-); Glucose, Blood 96 mg/dL (70-99); Potassium, Blood 2.3 mmol/L (3.5-5.5); Sodium, Blood 140 mmol/L (136-145); Total Protein, Blood 6.3 g/dL (6.4-8.2)
[2019-04-12 23:03] LABS: Source, Urine Clean Catch
[2019-04-12 23:07] LABS: Blood, Urine 1+ (Neg); Glucose Qualitative, Urine Neg (Neg); Ketones, Urine 2+ (Neg); Leukocyte Esterase, Urine 1+ (Neg); Nitrite, Urine Pos (Neg); Protein, Urine 2+ (Neg); Urobilinogen, Urine 2+ (Normal)
[2019-04-12 23:11] LABS: Appearance, Urine Hazy (Clear); Bilirubin, Urine 2+ (Neg); Color, Urine Amber (P-Yellow)
[2019-04-12 23:16] LABS: Amorphous Light (0-Heavy); Bacteria Mod /hpf; Hyaline Casts TNTC /lpf (0-2); Red Blood Cells, Urine 0-2 /hpf (0-2); Squamous Epithelial Cells Few /hpf (Few)
[2019-04-13 05:16] LABS: Anion Gap 9 mmol/L (6-16); Blood Urea Nitrogen 4 mg/dL (8-24); CO2, Blood 27 mmol/L (21-32); Chloride, Blood 105 mmol/L (98-108); Creatinine, Blood 0.67 mg/dL (0.40-1.00); Glomerular Filtration Rate >60 (60-); Glucose, Blood 102 mg/dL (70-99); Magnesium, Blood 2.1 mg/dL (1.6-2.4); Potassium, Blood 3.1 mmol/L (3.5-5.5); Sodium, Blood 141 mmol/L (136-145)
--- NOTE | 2019-04-13 06:31 | NUR ---
04/13/19 7829 SHEET ROCK HANGER CALLED AND NOTIFIED ENGLISH INSTRUCTOR OF PT HAVING 7 SECOND OF SVT AT THE RATE OF 180, HEART RATE NOW 105 AND PT PHYTHM IS MAT. DR. RIVERA NOTIFIED. PT IS ON TELE WILL CONTINUE TO MONITOR.
--- NOTE | 2019-04-13 06:38 | NUR ---
04/13/19 0400 UNIVERSAL BANKER CALLED TO SAY PT HAD A 12 SEC RUN OF VTACH AND THEN 46 SECONDS OF SVT. hE LATER SAID HE FELT IT WAS ABARENT SVT FOR THE 12 SECONDS INSTEAD OF VTACH. PT CONTINUES TO BE IN MAT WITH FREQ PAC'S AND PVC'S. PT DENIES ANY CHEST PAIN AND STATES SHE HAS FELT HER HEART RATE BE RAPID AND IRREGULAR ON AND OFF FOR THE LAST ABOUT [address] RIVERA AGAIN NOTIFIED, NOTIFIED OF THE ABOVE RHYTHM AND PT VITAL SIGNS AND CONDITON, STAT LABS ORDERED.
--- NOTE | 2019-04-13 06:44 | NUR ---
Rn summary: Patient is alert and oriented. Pt was admitted for hypokalemia. As reported in previous notes pt has had several episodes of SVT with rate 160-180. Pt base rhythm is MAT with PAC's and PVC's. Pt reported she has had rapid heart rate on and off last 2 months. Pt denies chest pain. Pt has chronic back pain and she was medicated x1 with percocet 1 tab with moderate relief. Dr. Magaña notified at 0600 of k+ level of 3.1. New order for 60mEq of IV K+ ordered. Pt otherwise has done well, has rested on and off between cares and evaluations. Call light in reach. Report to oncoming day shift RN.
--- NOTE | 2019-04-13 16:02 | NUR ---
PT REPORTING NAUSEA AND SHARP, CENTER OF CHEST, PAIN 5/10 WITH NUMBNESS IN CHEST. PT REPROTS FEELING LIKE "FOOD IS SITTING IN CHEST". VSS. NOTIFIED DR ARTHUR, NEW ORDERS FOR MAALOX.
--- NOTE | 2019-04-13 19:29 | NUR ---
SHIFT SUMMARY PT A&O. ANXIOUS BUT COOPERATIVE WITH CARE. PT RESTING IN BED DURING SHIFT. 1 PERSON ASSIST TO BSC. PT REPORTS CHRONIC BACK PAIN, MEDICATED X2 PER EMAR. PT PT REPROTS NAUSEA AND SHARP CHEST PAIN AND GI UPSET, MEDICATED PER EMAR. PT SOB WITH EXERTION, >92% ON RA, LS DIM. TELE SHOWING MULTIFOCAL ATRIAL TACH, WITH EPISODES OF SVT, DR ARTHUR NOTIFIED, DR HDZ TIME PIECE REPAIRER CONSULTS. PT HYPOKALEMIC, 60 MEQ OF IV KCL ADMINISTERED PER ORDERS. PT RECEIVING IV ANTIBIOTICS. VSS. NO OTHER ACUTE CHANGES NOTED DURING SHIFT. REPORT GIVEN TO ONCOMING RN.
--- NOTE | 2019-04-14 06:15 | NUR ---
SHIFT SUMMARY: 59 Y/O OBESE FEMALE RESTED COMFORTABLY ALL SHIFT. PT HOPING FOR POSSIBLE DISCHARGE HOME TODAY. PT C/O BACK PAIN AND WAS MEDICATED WITH OXYCODONE TWICE LAST NIGHT WITH RELIEF FELT. PT ABLE TO TRANSFER AND AMBULATE TO BATHROOM AND BACK WITH GAIT SLOW AND STEADY. PT HAPPY AND COOPERATIVE. PT DENIES NAUSEA. PTS BED LOW POSITION, CALL LIGHT AT SIDE.
--- NOTE | 2019-04-14 09:15 | NUR ---
hr: information technology account manager in room, states pt hr is runnign 160's-170's and she cant complete her echo. tele grout sewer line repairer called and states pt is running 120's. pt did have 12 beat run of vtach. pt denies symptoms or chest pain. will notify physician.
--- NOTE | 2019-04-14 11:17 | NUR ---
CARDIOLOGY: DR HDZ IN TO SEE PATIENT. PT HR IN THE 170'S WITH ACTIVITY. PT SYMPTOMATIC WITH DIZZINESS AND NAUSEA. PT HAD INCONTINENT BM X1. WILL AWAIT NEW ORDERS.
--- NOTE | 2019-04-14 17:52 | NUR ---
PT HAS CONTINUED TO HAVE TACHYCARDIA TODAY, WORSENING WITH ACTIVITY. PT SYMPTOMATIC WITH DIZZINESS AND NAUSEA. PT HAS HAD HIGH DIASTOLIC BP T/O SHIFT. JACK SPINNER IN THIS AFTERNOON. PT TO START METOPROLOL AND HAVE ECHO TOMORROW AM. PT HAS BEEN MIN ASSIST TO BSC. EATING AND VOIDING WELL. BM THIS AM. PT URINE CULTURES COMPLETE. CONT IV ABX. BLIND CLEANER CONSULT ORDERED TO ASSIST PT WITH LIVING SITUATION WHEN DISCHARGED. USES CALL LIGHT APPROPRIATELY NEEDED.
--- NOTE | 2019-04-15 03:51 | NUR ---
SHIFT SUMMARY: 59 Y/O OBESE FEMALE RESTED COMFORTABLY ALL SHIFT. PT C/O LOW BACK PAIN AND WAS MEDICATED WITH OXYCODONE 5MG WITH RELIEF FELT. PT DENIES NAUSEA. PT ABLE AMBULATE BATHROOM AND BACK TO BED WITHOUT ISSUE. PT HAPPY AND COOPERATIVE. PT HOPES TO BE DISCHARGED HOME TODAY. PTS BED LOW POSITION, CALL LIGHT AT SIDE.
[2019-04-15 05:55] LABS: Anion Gap 5 mmol/L (6-16); Blood Urea Nitrogen 8 mg/dL (8-24); Bun/Creatinine Ratio 16.1 (12.0-20.0); CO2, Blood 28 mmol/L (21-32); Calcium, Blood 7.9 mg/dL (8.5-10.1); Chloride, Blood 108 mmol/L (98-108); Glomerular Filtration Rate >60 (60-); Glucose, Blood 84 mg/dL (70-99); Magnesium, Blood 2.1 mg/dL (1.6-2.4); Potassium, Blood 4.2 mmol/L (3.5-5.5); Sodium, Blood 141 mmol/L (136-145)
--- NOTE | 2019-04-15 19:01 | NUR ---
SHIFT SUMMARY STANDBY ASSIST TO BATHROOM. C/O CHRONIC LOWER BACK PAIN. PLEASANT. PLACEMENT ISSUE PATIENT UNABLE TO RETURN HOME DUE TO RESTRAINING ORDER IN PLACE AND PENDING DIVORCE. EATING AND DRINKING WELL. MORBID OBESITY.
--- NOTE | 2019-04-16 05:57 | NUR ---
SHIFT SUMMARY PATIENT IS ALERT AND ORIENTED. USES CALL LIGHT APPROPRIATELY. PATIENT DID NOT SLEEP WELL. PT STATES SHE FELT LIKE SOMEONE WAS IN HER ROOM AND WHEN SHE SAID HI NO ONE ANSWERED AND SHE KNEW NO ONE WAS THERE. I ASKED IF MAYBE SHE HEARD STAFF OR OTHER PATIENTS DOWN THE LEVIN AND SHE SAID PROBABLY. PATIENT REQUESTED A PAIN PILL THIS AM AND STATES SHE FEELS MORE RELAXED AFTER. VITAL SIGNS STABLE. PATIENT AMBULATED TO THE BATHROOM INDEPENDENTLY THROUGHOUT THE NIGHT. PATIENT TALKED ABOUT HER CURRENT LIVING SITUATION AND HOW SHE WANTS TO HAVE A HEALTHIER LIFESTYLE. THAT SHE KNOWS SHE NEEDS SPACE FROM HER , AND HOPES THAT WE CAN HELP FIND HER A SAFE PLACE TO STAY THAT IS FREE FROM DRUGS AND ALCOHOL. NO OTHER CHANGES NOTED THROUGHOUT THE NIGHT.
[2019-04-16] MEDS ORDERED: Lopressor 25 mg25 MG PO (11:30)
[2019-04-16] MEDS ORDERED: NITR100CA PO (11:32)
[2019-04-16] MEDS ORDERED: ONDA4ODT MM (11:33)
--- NOTE | 2019-04-16 12:05 | NUR ---
CONTACTED SCREWHEAD POLISHER (LEFT VOCERA MESSAGE) TO CLARIFY PT'S DISCHARGE HOME WITH HOME HEALTH. PT STATES "I PROBABLY CAN'T GO BACK HOME IT'S PRETTY MUCH A METH LAB".
--- NOTE | 2019-04-16 13:12 | NUR ---
DISCHARGE NOTE PT VERBALIZED UNDERSTANDING OF DISCHARGE INSTRUCTIONS. IV'S DISCONTINUED INTACT AND WNL. RX FAXED TO [facility] PER PT REQUEST. PT TO DISCHARGE HOME WITH HOME HEALTH. ALL BELONGINGS GIVEN TO PT AT TIME OF DISCHARGE.
== END 2019-04-16 14:05 | disposition home or self-care (01) | DRG 641 ==
LOC: ER 21:22 → MEDS 21:23 → ER 21:23 → MEDS 04-13 01:17 → ENPENDDIS 04-16 10:08 → MEDS 04-16 14:05
PROVIDERS: Emergency Medicine; Internal Medicine; ADMIT Hospitalist
DX: E87.6 Hypokalemia (principal); N39.0 Urinary tract infection, site not specified; I47.1 Supraventricular tachycardia; Z68.41 Body mass index [BMI] 40.0-44.9, adult; E66.2 Morbid (severe) obesity with alveolar hypoventilation; I50.32 Chronic diastolic (congestive) heart failure; F11.20 Opioid dependence, uncomplicated; E03.9 Hypothyroidism, unspecified; Z96.651 Presence of right artificial knee joint; Z98.84 Bariatric surgery status; Z59.0 Homelessness; K76.0 Fatty (change of) liver, not elsewhere classified; Z71.3 Dietary counseling and surveillance; I11.0 Hypertensive heart disease with heart failure; G89.29 Other chronic pain; M54.9 Dorsalgia, unspecified
CPT/HCPCS: 36415; 51701; 80048; 80053; 81001; 83735; 84132; 84443; 85025; 87086; 93005; 93010; 93306; 94760; 96365-59; 96366; 96366-59; 96367; 96368; 96372; 96375-59; 96376; 99284-25; G0378; J1650; J2185; J2765; J3475; J3480; J7030; J7050

== ENCOUNTER 2019-06-07 22:38 | Emergency (ER) | payer MEDICARE ==
[~2019-06-07] VITALS: Ht 160 cm; Wt 111.1 kg
[~2019-06-07 22:38] MED LIST changes: +Lopressor 25 mg25 MG PO
== END 2019-06-08 04:54 | disposition home or self-care (01) ==
LOC: ER 22:38
DX: S80.11XA Contusion of right lower leg, initial encounter (principal); I87.2 Venous insufficiency (chronic) (peripheral); E03.9 Hypothyroidism, unspecified; F32.9 Major depressive disorder, single episode, unspecified; I11.0 Hypertensive heart disease with heart failure; I50.9 Heart failure, unspecified; Z87.891 Personal history of nicotine dependence; Z88.1 Allergy status to other antibiotic agents; Z79.82 Long term (current) use of aspirin; Z79.899 Other long term (current) drug therapy; G47.30 Sleep apnea, unspecified; W18.30XA Fall on same level, unspecified, initial encounter
CPT/HCPCS: 36415; 93971; 96372; 99284-25; J3010

== ENCOUNTER → 2019-07-06 | Outpatient (CLI) | payer MEDICARE ==
[~2019-07-06] MED LIST changes: +Acetaminophen-1 EAC1 PO
== END | disposition home or self-care (01) ==
LOC: LAB 14:42 → LAB SHORT 14:42
DX: N39.0 Urinary tract infection, site not specified (principal)
CPT/HCPCS: 87077; 87086; 87186

== ENCOUNTER 2019-08-16 07:16 | Emergency (ER) | payer MEDICARE ==
[~2019-08-16] VITALS: Ht 162.6 cm; Wt 113.4 kg
[~2019-08-16 07:16] MED LIST changes: -Acetaminophen-1 EAC1 PO
[2019-08-16 07:50] LABS: BASOPHILS ABSOLUTE AUTO 0.05 K/mm3 (0.00-0.23); BASOPHILS PERCENT AUTO 1 % (0-2); EOSINOPHILS ABSOLUTE AUTO 0.12 K/mm3 (0.00-0.68); EOSINOPHILS PERCENT AUTO 1 % (0-6); Hematocrit 39.7 % (33.0-51.0); Hemoglobin 13.3 g/dL (11.5-16.0); IMMATURE GRAN ABSOLUTE AUTO 0.04 K/mm3 (0.00-0.10); IMMATURE GRAN PERCENT AUTO 1 % (0-1); LYMPHOCYTES ABSOLUTE AUTO 1.22 K/mm3 (0.84-5.20); LYMPHOCYTES PERCENT AUTO 14 % (21-46); MONOCYTES ABSOLUTE AUTO 0.49 K/mm3 (0.16-1.47); MONOCYTES PERCENT AUTO 6 % (4-13); Mean Corpuscular HGB 32.7 pg (26.0-34.0); Mean Corpuscular HGB Conc 33.5 g/dL (31.5-36.5); Mean Corpuscular Volume 98 fL (80-100); Mean Platelet Volume 10.4 fL (9.1-12.4); NEUTROPHILS ABSOLUTE AUTO 6.79 K/mm3 (1.96-9.15); NEUTROPHILS PERCENT AUTO 78 % (41-73); Platelet Count 253 K/mm3 (150-400); RDW Coefficient Variation 20.2 % (11.7-14.2); RDW Standard Deviation 72.4 fL (35.1-46.3); Red Blood Cell Count 4.07 M/mm3 (3.80-5.20); White Blood Cell Count 8.71 K/mm3 (4.00-11.30)
[2019-08-16 08:08] LABS: Alanine Aminotransfer (ALT/SGP 48 U/L (12-78); Albumin, Blood 2.8 g/dL (3.4-5.0); Albumin/Globulin Ratio 0.7 (0.8-1.8); Alk Phos 293 U/L (50-136); Anion Gap 11 mmol/L (6-16); Aspartate Aminotrans (AST/SGOT 115 U/L (12-37); Bilirubin, Total 1.5 mg/dL (0.1-1.0); Blood Urea Nitrogen 6 mg/dL (8-24); CO2, Blood 25 mmol/L (21-32); Calcium, Blood 8.5 mg/dL (8.5-10.1); Chloride, Blood 105 mmol/L (98-108); Globulin, Blood 3.8 g/dL (2.2-4.0); Glomerular Filtration Rate >60 (60-); Glucose, Blood 73 mg/dL (70-99); Potassium, Blood 3.2 mmol/L (3.5-5.5); Sodium, Blood 141 mmol/L (136-145); Total Protein, Blood 6.6 g/dL (6.4-8.2); Troponin I <0.015 ng/mL (0.000-0.040)
[2019-08-16] MEDS ORDERED: Acetaminophen-1 EAC1 PO (09:25)
== END 2019-08-16 09:42 | disposition home or self-care (01) ==
LOC: ER 07:16
PROVIDERS: Emergency Medicine
DX: R07.89 Other chest pain (principal); I11.0 Hypertensive heart disease with heart failure; I50.9 Heart failure, unspecified; F32.9 Major depressive disorder, single episode, unspecified; E07.9 Disorder of thyroid, unspecified; Z88.8 Allergy status to other drugs, medicaments and biological substances; Z79.51 Long term (current) use of inhaled steroids; Z79.899 Other long term (current) drug therapy; Z79.82 Long term (current) use of aspirin
CPT/HCPCS: 36415; 71046; 80053; 84484; 85025; 93005; 93010; J1885; J2405; J3010

== ENCOUNTER 2019-09-13 12:55 | Emergency (ER) | payer MEDICARE ==
[~2019-09-13] VITALS: Ht 160 cm; Wt 111.1 kg
[~2019-09-13 12:55] MED LIST changes: +Acetaminophen-1 EAC1 PO; -OMEPRAZOLE MAGN20 MG PO
[2019-09-13 14:08] LABS: BASOPHILS ABSOLUTE AUTO 0.05 K/mm3 (0.00-0.23); BASOPHILS PERCENT AUTO 1 % (0-2); EOSINOPHILS ABSOLUTE AUTO 0.12 K/mm3 (0.00-0.68); EOSINOPHILS PERCENT AUTO 1 % (0-6); Hematocrit 36.2 % (33.0-51.0); Hemoglobin 12.7 g/dL (11.5-16.0); IMMATURE GRAN ABSOLUTE AUTO 0.09 K/mm3 (0.00-0.10); IMMATURE GRAN PERCENT AUTO 1 % (0-1); LYMPHOCYTES ABSOLUTE AUTO 1.15 K/mm3 (0.84-5.20); LYMPHOCYTES PERCENT AUTO 12 % (21-46); MONOCYTES ABSOLUTE AUTO 0.34 K/mm3 (0.16-1.47); MONOCYTES PERCENT AUTO 4 % (4-13); Mean Corpuscular HGB 34.8 pg (26.0-34.0); Mean Corpuscular HGB Conc 35.1 g/dL (31.5-36.5); Mean Corpuscular Volume 99 fL (80-100); Mean Platelet Volume 10.7 fL (9.1-12.4); NEUTROPHILS ABSOLUTE AUTO 8.09 K/mm3 (1.96-9.15); NEUTROPHILS PERCENT AUTO 82 % (41-73); Platelet Count 211 K/mm3 (150-400); RDW Coefficient Variation 22.2 % (11.7-14.2); RDW Standard Deviation 79.7 fL (35.1-46.3); Red Blood Cell Count 3.65 M/mm3 (3.80-5.20); White Blood Cell Count 9.84 K/mm3 (4.00-11.30)
[2019-09-13 14:45] LABS: Source, Urine Catheter
[2019-09-13 14:45] LABS: Alanine Aminotransfer (ALT/SGP 59 U/L (12-78); Albumin, Blood 2.8 g/dL (3.4-5.0); Albumin/Globulin Ratio 0.7 (0.8-1.8); Alk Phos 457 U/L (50-136); Anion Gap 10 mmol/L (6-16); Aspartate Aminotrans (AST/SGOT 128 U/L (12-37); Bilirubin, Total 1.2 mg/dL (0.1-1.0); Blood Urea Nitrogen 6 mg/dL (8-24); CO2, Blood 22 mmol/L (21-32); Calcium, Blood 8.8 mg/dL (8.5-10.1); Chloride, Blood 104 mmol/L (98-108); Glomerular Filtration Rate >60 (60-); Glucose, Blood 90 mg/dL (70-99); Potassium, Blood 3.2 mmol/L (3.5-5.5); Sodium, Blood 136 mmol/L (136-145); Total Protein, Blood 6.8 g/dL (6.4-8.2)
[2019-09-13 14:55] LABS: Blood, Urine 1+ (Neg); Glucose Qualitative, Urine Neg (Neg); Ketones, Urine 3+ (Neg); Leukocyte Esterase, Urine 1+ (Neg); Nitrite, Urine Pos (Neg); Protein, Urine 2+ (Neg); Specific Gravity, Urine 1.015 (1.003-1.022); Urobilinogen, Urine 1+ (Normal)
[2019-09-13 15:01] LABS: Appearance, Urine Hazy (Clear); Bilirubin, Urine 1+ (Neg); Color, Urine Amber (P-Yellow)
[2019-09-13 15:03] LABS: Red Blood Cells, Urine 0-2 /hpf (0-2)
[2019-09-13 15:04] LABS: Bacteria Many /hpf; Squamous Epithelial Cells Not Seen /hpf (Few); Transitional Epithelial Cells Rare /hpf (0-Rare)
[2019-09-13] MEDS ORDERED: ONDA4ODT MM (16:27)
[2019-09-13] MEDS ORDERED: TYLECOD3 PO (16:27)
[2019-09-13] MEDS ORDERED: Macrobid 100 M100 MG PO (16:27)
== END 2019-09-13 17:28 | disposition home or self-care (01) ==
LOC: ER 12:55
PROVIDERS: Physician Assistant
DX: S20.212A Contusion of left front wall of thorax, initial encounter (principal); N39.0 Urinary tract infection, site not specified; E03.9 Hypothyroidism, unspecified; F32.9 Major depressive disorder, single episode, unspecified; I11.0 Hypertensive heart disease with heart failure; I50.9 Heart failure, unspecified; Z79.899 Other long term (current) drug therapy; Z87.891 Personal history of nicotine dependence; W18.30XA Fall on same level, unspecified, initial encounter
CPT/HCPCS: 36415; 51701; 71101; 80053; 81001; 83880; 85025; 87077; 87086; 87186; 93005; 93010; 96361-59; 96374-59; 99284-25; J2405; J7120

== ENCOUNTER 2019-09-20 13:22 | Inpatient (IN) | payer MEDICARE ==
[~2019-09-20] VITALS: Ht 160 cm; Wt 129.0 kg
[~2019-09-20 13:22] MED LIST changes: +TYLECOD3 PO
[2019-09-20 14:43] LABS: BASOPHILS ABSOLUTE AUTO 0.04 K/mm3 (0.00-0.23); BASOPHILS PERCENT AUTO 0 % (0-2); EOSINOPHILS PERCENT AUTO 2 % (0-6); Hematocrit 37.5 % (33.0-51.0); Hemoglobin 12.9 g/dL (11.5-16.0); IMMATURE GRAN ABSOLUTE AUTO 0.16 K/mm3 (0.00-0.10); IMMATURE GRAN PERCENT AUTO 2 % (0-1); LYMPHOCYTES ABSOLUTE AUTO 1.36 K/mm3 (0.84-5.20); LYMPHOCYTES PERCENT AUTO 13 % (21-46); MONOCYTES ABSOLUTE AUTO 0.68 K/mm3 (0.16-1.47); MONOCYTES PERCENT AUTO 7 % (4-13); Mean Corpuscular HGB Conc 34.4 g/dL (31.5-36.5); Mean Platelet Volume 10.8 fL (9.1-12.4); NEUTROPHILS ABSOLUTE AUTO 7.93 K/mm3 (1.96-9.15); NEUTROPHILS PERCENT AUTO 77 % (41-73); Platelet Count 196 K/mm3 (150-400); RDW Coefficient Variation 23.8 % (11.7-14.2); RDW Standard Deviation 85.8 fL (35.1-46.3); Red Blood Cell Count 3.69 M/mm3 (3.80-5.20); White Blood Cell Count 10.37 K/mm3 (4.00-11.30)
[2019-09-20 14:44] LABS: Mean Corpuscular Volume 102 fL (80-100)
[2019-09-20 15:05] LABS: Ethanol (Alcohol), Blood, Med <3 mg/dL; Salicylate <1.7 mg/dL (2.8-20.0)
[2019-09-20 15:06] LABS: Alanine Aminotransfer (ALT/SGP 80 U/L (12-78); Albumin, Blood 2.6 g/dL (3.4-5.0); Albumin/Globulin Ratio 0.6 (0.8-1.8); Alk Phos 533 U/L (50-136); Anion Gap 8 mmol/L (6-16); Aspartate Aminotrans (AST/SGOT 170 U/L (12-37); Bilirubin, Total 2.4 mg/dL (0.1-1.0); Blood Urea Nitrogen 8 mg/dL (8-24); CO2, Blood 26 mmol/L (21-32); Chloride, Blood 105 mmol/L (98-108); Creatinine, Blood 0.62 mg/dL (0.40-1.00); Globulin, Blood 4.2 g/dL (2.2-4.0); Glomerular Filtration Rate >60 (60-); Glucose, Blood 79 mg/dL (70-99); Potassium, Blood 3.3 mmol/L (3.5-5.5); Sodium, Blood 139 mmol/L (136-145); Total Protein, Blood 6.8 g/dL (6.4-8.2)
[2019-09-20 15:09] LABS: Acetaminophen, Random <2.0 ug/mL (10.0-30.0)
[2019-09-20] MEDS ORDERED: ALUM320SU PO (17:09)
[2019-09-20] MEDS ORDERED: PANT40 PO (17:10)
[2019-09-20] MEDS ORDERED: CALC.25 PO (17:10)
[2019-09-20] MEDS ORDERED: VITAMIN B-121000 MC2 PO (17:12)
[2019-09-20] MEDS ORDERED: POTASSIUM CHLO20 ME1 PO (17:12)
[2019-09-20] MEDS ORDERED: ALPRAZOLAM0.5 M1 PO (17:13)
[2019-09-20] MEDS ORDERED: Oxycodone-Apap1 EAC3 PO (19:15)
--- NOTE | 2019-09-20 23:40 | NUR ---
SPOKE TO NEUROSURGERY RESEARCH DIRECTOR JACKI REGARDING PT CRITICAL VALUE LACTIC ACIDE 2.5, NO NEW ORDERS FOR THIS AT THIS TIME. ALSO PATIENT REQ PAIN MED TYLENOL#3 FOR RIB PAIN RELATED TO FRACTURED RIBS AFTER A FALL AT HOME. ORDER RECEIVED PER EMAR
[2019-09-21 00:54] LABS: Adenovirus Not Detected (NOT DETECT); Bordetella pertussis Not Detected (NOT DETECT); Chlamydophila pneumoniae Not Detected (NOT DETECT); Coronavirus 229E Not Detected (NOT DETECT); Coronavirus HKU1 Not Detected (NOT DETECT); Coronavirus NL63 Not Detected (NOT DETECT); Coronavirus OC43 Not Detected (NOT DETECT); Human Metapneumovirus Not Detected (NOT DETECT); Human Rhinovirus/Enterovirus Not Detected (NOT DETECT); Influenza A Not Detected (NOT DETECT); Influenza A/2009-H1 Not Detected (NOT DETECT); Influenza A/H1 Not Detected (NOT DETECT); Influenza A/H3 Not Detected (NOT DETECT); Influenza B Not Detected (NOT DETECT); Mycoplasma pneumoniae Not Detected (NOT DETECT); Parainfluenza Virus 1 Not Detected (NOT DETECT); Parainfluenza Virus 2 Not Detected (NOT DETECT); Parainfluenza Virus 3 Not Detected (NOT DETECT); Parainfluenza Virus 4 Not Detected (NOT DETECT); Respiratory Syncytial Virus Not Detected (NOT DETECT)
--- NOTE | 2019-09-21 04:54 | NUR ---
PT RESTED QUIETLY THROUGHT THE SHIFT; THOUGH SHE MADE AN AGREEMENT WITH ME NOT TO HARM HERSELF THIS SHIFT, SHE REITERATED SEVERAL TIMES THAT SHE WOULD LIKELY ATTEMPT TO END HER LIFE ONCE BEING DISCHARGED, THAT SHE WAS AFRAID TO BE HOMELESS. AND THINKS THAT SHE IT IS INEVITABLE THAT SHE SOON WILL BE. PATIENT RECEIVED ONE DOSE OF TYLENOL#3 SINCE COMING TO THE FLOOR AND SHE APPEARS TO BE IN NO APPARENT DISTRESS. BREATHING IS EVEN AND UNLABORED, WITH LITTLE TO NO COUGH. CLL ZHENG WITHIN REACH, BED LOW LOCKED AND ALARMED. WILL CONTINUE TO MONITOR
[2019-09-21 05:21] LABS: BASOPHILS ABSOLUTE AUTO 0.03 K/mm3 (0.00-0.23); BASOPHILS PERCENT AUTO 0 % (0-2); EOSINOPHILS ABSOLUTE AUTO 0.26 K/mm3 (0.00-0.68); EOSINOPHILS PERCENT AUTO 3 % (0-6); Hematocrit 30.2 % (33.0-51.0); Hemoglobin 10.4 g/dL (11.5-16.0); IMMATURE GRAN ABSOLUTE AUTO 0.16 K/mm3 (0.00-0.10); IMMATURE GRAN PERCENT AUTO 2 % (0-1); LYMPHOCYTES PERCENT AUTO 13 % (21-46); MONOCYTES PERCENT AUTO 11 % (4-13); Mean Corpuscular HGB 35.5 pg (26.0-34.0); Mean Corpuscular HGB Conc 34.4 g/dL (31.5-36.5); Mean Corpuscular Volume 103 fL (80-100); Mean Platelet Volume 11.1 fL (9.1-12.4); NEUTROPHILS ABSOLUTE AUTO 6.16 K/mm3 (1.96-9.15); NEUTROPHILS PERCENT AUTO 72 % (41-73); Platelet Count 144 K/mm3 (150-400); RDW Coefficient Variation 24.1 % (11.7-14.2); RDW Standard Deviation 87.5 fL (35.1-46.3); Red Blood Cell Count 2.93 M/mm3 (3.80-5.20); White Blood Cell Count 8.61 K/mm3 (4.00-11.30)
[2019-09-21 05:53] LABS: Anion Gap 7 mmol/L (6-16); Blood Urea Nitrogen 8 mg/dL (8-24); Bun/Creatinine Ratio 14.6 (12.0-20.0); CO2, Blood 25 mmol/L (21-32); Calcium, Blood 8.3 mg/dL (8.5-10.1); Chloride, Blood 108 mmol/L (98-108); Creatinine, Blood 0.55 mg/dL (0.40-1.00); Glomerular Filtration Rate >60 (60-); Glucose, Blood 82 mg/dL (70-99); Potassium, Blood 3.5 mmol/L (3.5-5.5); Sodium, Blood 140 mmol/L (136-145)
--- NOTE | 2019-09-21 13:38 | NUR ---
PT STATED SHE WAS WANTING TO HANG HERSELF AND WAS PREPARING TO KILL HERSELF ONCE SHE WAS RELEASED. STATED SHE HAD NOTHING TO LIVE FOR AND WAS WANTING TO FOR THE LAST YEAR.
--- NOTE | 2019-09-21 13:42 | NUR ---
PT STILL STATING SHE IS GOING TO HANG HERSELF ONCE SHE IS OUT OF HERE.
--- NOTE | 2019-09-21 16:41 | NUR ---
PATIENT WOULD LIKE TO TALK TO THE MENTAL HEALTH DOCTOR. STATES SHE FEELS LIKE SHE IS IN "OUTER LEFT FIELD" AND THAT EVERYTHING IS SHUTTING DOWN. FEELS IF HER MIND ISNT SHUTTING DOWN.
--- NOTE | 2019-09-21 17:06 | NUR ---
NO ACUTE CHANGES PT PATIENT. SHE IS FRIENDLY AND COOPERATIVE WITH STAFF. PT STILL REPORTS THAT SHE WANTS TO AND PLANS ON HANGING HERSELF WHEN SHE IS DISCHARGED. THIS NURSE TALKED WITH HER MORE AND PATIENT ADMITTED SHE WANTED PSYCH HELP AND TO TALK TO SOMEONE REGARDING HER ISSUES IN LIFE.
--- NOTE | 2019-09-21 19:52 | NUR ---
PT SITTING IN BED AO4, IN NO APPAARENT DISTRESS. RR EVEN AND UNLABORED LUNG SOUNDS CLEAR BUT DIM. PT STATES SHE IS FEELING NAUSEATED. GAVE ZOFRAN SL PER EMAR. CHANGED LINENS, GAVE AHSAN CARE. AREA UNDER RIGHT PANNUS IS A BIT RED AND RAW, SO WE LEFT HER PANTS AND BRIEF OFF FOR A WHILE. TUCKED A DRY WIPE TO WICK ANY MOISTURE AND WILL RECHECK THE SHIFT CONTINUES. CLEAN GOWN. PER PCU DIMAS HOPKINS NSR WITH PACS @ 90 BPM. VSS. BED LOW AND ALARMED. CALL ZHENG WITHIN REACH.
[2019-09-22 05:28] LABS: Albumin, Blood 2.2 g/dL (3.4-5.0); Anion Gap 9 mmol/L (6-16); Blood Urea Nitrogen 7 mg/dL (8-24); Bun/Creatinine Ratio 13.9 (12.0-20.0); CO2, Blood 23 mmol/L (21-32); Calcium, Blood 8.2 mg/dL (8.5-10.1); Chloride, Blood 107 mmol/L (98-108); Creatinine, Blood 0.51 mg/dL (0.40-1.00); Glomerular Filtration Rate >60 (60-); Glucose, Blood 77 mg/dL (70-99); Phosphorus, Blood 1.5 mg/dL (2.5-4.9); Potassium, Blood 4.6 mmol/L (3.5-5.5); Sodium, Blood 139 mmol/L (136-145)
[2019-09-22 05:34] LABS: BASOPHILS ABSOLUTE AUTO 0.07 K/mm3 (0.00-0.23); BASOPHILS PERCENT AUTO 1 % (0-2); EOSINOPHILS PERCENT AUTO 3 % (0-6); Hematocrit 33.1 % (33.0-51.0); Hemoglobin 11.3 g/dL (11.5-16.0); IMMATURE GRAN PERCENT AUTO 3 % (0-1); LYMPHOCYTES ABSOLUTE AUTO 1.54 K/mm3 (0.84-5.20); LYMPHOCYTES PERCENT AUTO 17 % (21-46); MONOCYTES ABSOLUTE AUTO 0.83 K/mm3 (0.16-1.47); MONOCYTES PERCENT AUTO 9 % (4-13); Mean Corpuscular HGB 35.6 pg (26.0-34.0); Mean Corpuscular HGB Conc 34.1 g/dL (31.5-36.5); Mean Corpuscular Volume 104 fL (80-100); Mean Platelet Volume 10.6 fL (9.1-12.4); NEUTROPHILS ABSOLUTE AUTO 5.95 K/mm3 (1.96-9.15); NEUTROPHILS PERCENT AUTO 66 % (41-73); Platelet Count 144 K/mm3 (150-400); RDW Coefficient Variation 24.1 % (11.7-14.2); RDW Standard Deviation 91.1 fL (35.1-46.3); Red Blood Cell Count 3.17 M/mm3 (3.80-5.20); White Blood Cell Count 8.99 K/mm3 (4.00-11.30)
--- NOTE | 2019-09-22 07:27 | NUR ---
PT WAS UP MUCH OF THE NIGHT WE ATTEMPTED MULTIPLE MULTIPLE TIMES TO GIVE HER A NEW IV. MYSELF SEVERAL CHARGES THE CLINICAL COORDINATOR, AND ICU NURSE TRIED TO START IVS FOR THIS PATIENT. SHE MAY NEED TO CONVERT TO ORAL MEDS.. OTHER THAN THAT SHE WAS IN BETTER SPIRITS AND THINKING IN MORE POSITIVE WAYS.
[2019-09-22 08:04] LABS: Source, Urine Clean Catch
[2019-09-22 08:09] LABS: Blood, Urine 1+ (Neg); Glucose Qualitative, Urine Neg (Neg); Ketones, Urine 1+ (Neg); Leukocyte Esterase, Urine 1+ (Neg); Nitrite, Urine Pos (Neg); Protein, Urine 2+ (Neg); Urobilinogen, Urine 2+ (Normal)
[2019-09-22 08:16] LABS: Bilirubin, Urine 2+ (Neg)
[2019-09-22 08:17] LABS: Appearance, Urine Cloudy (Clear); Color, Urine Amber (P-Yellow)
[2019-09-22 08:21] LABS: Bacteria Mod /hpf; Squamous Epithelial Cells Mod /hpf (Few)
--- NOTE | 2019-09-22 18:06 | NUR ---
PATIENT WAS IN BETTER MOOD TODAY. SHE STILL TALKED ABOUT BEING DEPRESSED BUT WAS HOPEFUL SHE COULD GET THE HELP SHE NEEDS FOR HOUSING. PATIENT ON CAMERAS STILL. SHE IS ABLE TO AMBULATE TO THE BSC WITH STANDBY ASSIST.
--- NOTE | 2019-09-23 06:13 | NUR ---
SHIFT SUMMARY PT ON SI PRECAUTIONS. STILL TALKED ABOUT IDEATIONS OF SUICIDE. A/O VERY CALM, POLITE AND COOPERATIVE CALLING APPROPRIATELY. SBA TO BSC. C/O PAIN IN L RIBS AND MEDICATED PER EMAR X2. C/O NAUSEA AND MEDICATED PER EMAR BUT STILL HAD STOMACH UPSET SO GOT ORDER FOR PEPTO BISMOL AND THIS WAS ABLE TO HELP HER AND SHE GOT TO SLEEP AFTER THAT. SHE WAS ABLE TO SLEEP T/O NIGHT. BED ALARM IN USE. VIDEO MONITORING IN USE.
[2019-09-23] MEDS ORDERED: TYLECOD3 PO (11:17)
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
--- NOTE | 2019-09-23 12:22 | NUR ---
PT STATE CONTINUING SI, NO PLAN, STATE NO THOUGHTS OF HARMING HERSELF WHILE IN HOSP. DR ARTHUR IN TO SEE HER. BEHAVIORAL HEALTH RN IN FOR ASSESSMENT, [facility] ALSO IN FOR EVAL.
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
--- NOTE | 2019-09-23 16:24 | NUR ---
Per nursing request, I met with Emilie. She is talkative and appeared to appreciaite being heard and affirmed. She moved quickly from topic to topic, and told me she was "saved" 4 months ago. She admits she wishes she "wasn't here anymore." I provided gentle spiritual direction and prayer. She thanked me for spiritual support. I will remain available.
--- NOTE | 2019-09-23 17:57 | NUR ---
SUMMARY PT IS A/O X4, SHE IS UP 1 ASSIST TO BSC/CHAIR. SHE STATE L RIB/SIDE PAIN D/T FALL @ HOME, LRG BRUISE NOTED L FLANK/BACK, PRN TYLENOL #3 GIVEN FOR PAIN CONTROL/RELIEF. SHE STATE NAUSEA INTERMITTANTLY TODAY, PRN PEPTO-BISMOL & ZOFRAN GIVEN FOR RELIEF/CONTROL. LUNGS DECREASED W CRACKLES BASES, STATE NO SOB @ REST, STATE COUGH HOWEVER HAS BEEN UNABLE TO PRODUCE SPUTUM SAMPLE TODAY. STATE CONTINUING DEPRESSION, SI HOWEVER STATE SHE WILL NOT HARM HERSELF WHILE IN HOSP. CAMERA MX CONTINUES. BEHAVIORAL HEALTH RN IN TO FORM SAFETY PLAN W PT. DORITA ORTEGA PSYCHE [place] CONTROLLER WAS IN TO SEE HER THIS AFTERNOON. 2 MD HOLD CONTINUES. SUICIDAL PRECAUTIONS CONTINUE/
--- NOTE | 2019-09-24 05:35 | NUR ---
SHIFT SUMMARY PT MOD SUICIDE RISK IN 1:1 VIDEO MONITORING. PT IS A&OX4, COOPERATIVE WITH CARE. DOES NOT ATTEMP BED EXITS, CALLS STAFF APPROP FOR NEEDS (VOICES OUT D/T SHORT CALL LT CORD WITH SI PRECAUTIONS). PT TAKES TYLENOL #3 TWICE TONIGHT FOR L RIB/SIDE PAIN. NO OTHER CHANGES TO REPORT. WILL CONT TO MONITOR AND PROVIDE CARE UNTIL PRESUMED BY ONCOMING RN.
--- NOTE | 2019-09-24 11:07 | NUR ---
PT STATE NO THOUGHTS OF HARMING HERSELF WHILE IN HOSP, STATE FEELS SAFE WHILE HERE. STATE CONTINUING "LINGERING" SI, HOWEVER ALSO FEELS THOUGHTS OF HOPE. REQUESTS PASTORAL CARE VISIT.
--- NOTE | 2019-09-24 17:41 | NUR ---
SUMMARY PT STATE FEELS SAFE IN HOSP, STATE NO THOUGHTS OF HURTING HERSELF. STATE LINGERING FEELINGS OF SI HOWEVER FEELING MORE HOPEFUL. DR MAYES (PSYCH) IN TO ASSESS, STATE LOW LEVEL SI @ THIS TIME. SI PRECAUTIONS CONTINUE. PT STATE CONTINUING PERIODS OF NAUSEA, @ X'S STATE "DRY HEAVES", SHE HAS BEEN OBSERVED ON CAMERA PUTTING HER FINGER DOWN HER THROAT, STATE TO RELEIVE NAUSEA. DR ARTHUR NOTIFIED ORDER TROP R/T PREVIOUS HEART HX & ORDER REGLAN BEFORE MEALS. SHE HAS PAIN L SIDE/RIBS R/T FALL @ HOME, PRN TYLENOL 3 FOR PAIN CONTROL. VSS.
--- NOTE | 2019-09-24 18:40 | NUR ---
Emilie is very appreciaitve of spiritual support and prayer. She says she feels more hopeful today and is in better spirits. I prayed for continued healing and a clear path. I will remain available.
[2019-09-25 05:12] LABS: BASOPHILS ABSOLUTE AUTO 0.09 K/mm3 (0.00-0.23); BASOPHILS PERCENT AUTO 1 % (0-2); EOSINOPHILS ABSOLUTE AUTO 0.31 K/mm3 (0.00-0.68); EOSINOPHILS PERCENT AUTO 3 % (0-6); Hematocrit 32.3 % (33.0-51.0); Hemoglobin 10.4 g/dL (11.5-16.0); IMMATURE GRAN ABSOLUTE AUTO 0.47 K/mm3 (0.00-0.10); IMMATURE GRAN PERCENT AUTO 5 % (0-1); LYMPHOCYTES ABSOLUTE AUTO 1.54 K/mm3 (0.84-5.20); LYMPHOCYTES PERCENT AUTO 16 % (21-46); MONOCYTES ABSOLUTE AUTO 0.73 K/mm3 (0.16-1.47); MONOCYTES PERCENT AUTO 8 % (4-13); Mean Corpuscular HGB 35.7 pg (26.0-34.0); Mean Corpuscular HGB Conc 32.2 g/dL (31.5-36.5); Mean Platelet Volume 11.2 fL (9.1-12.4); NEUTROPHILS ABSOLUTE AUTO 6.38 K/mm3 (1.96-9.15); NEUTROPHILS PERCENT AUTO 67 % (41-73); Platelet Count 109 K/mm3 (150-400); RDW Coefficient Variation 24.3 % (11.7-14.2); RDW Standard Deviation 97.7 fL (35.1-46.3); Red Blood Cell Count 2.91 M/mm3 (3.80-5.20); White Blood Cell Count 9.52 K/mm3 (4.00-11.30)
[2019-09-25 05:26] LABS: Anion Gap 8 mmol/L (6-16); Blood Urea Nitrogen 8 mg/dL (8-24); Bun/Creatinine Ratio 16.6 (12.0-20.0); CO2, Blood 22 mmol/L (21-32); Calcium, Blood 8.1 mg/dL (8.5-10.1); Chloride, Blood 109 mmol/L (98-108); Creatinine, Blood 0.48 mg/dL (0.40-1.00); Glomerular Filtration Rate >60 (60-); Glucose, Blood 65 mg/dL (70-99); Magnesium, Blood 1.4 mg/dL (1.6-2.4); Potassium, Blood 4.9 mmol/L (3.5-5.5); Sodium, Blood 139 mmol/L (136-145)
[2019-09-25 05:43] LABS: Mean Corpuscular Volume 111 fL (80-100)
--- NOTE | 2019-09-25 06:28 | NUR ---
SHIFT SUMMARY PT IS A 59 Y/O FEMALE, ADMITTED FOR PNA AND SI. SHE IS CURRENTLY A LOW RISK SUICIDAL IDEATION PATIENT, AND IS CURRENTLY NOT ON CAMERA OR A 1:1 SITTER. PT IS A&O X 4, AND STATED THAT SHE IS FEELING MORE "HOPEFUL" ABOUT THE FUTURE. SHE WAS MEDICATED X2 FOR RIB PAIN WITH PRN TYLENOL #3. NO OTHER ACUTE CHANGES IN PT CONDITION NOTED. WILL CONTINUE TO MONITOR AND TREAT PER EMAR UNTIL HAND OFF TO DAY SHIFT RN.
--- NOTE | 2019-09-25 17:53 | NUR ---
Ms. Garcia responded well to prayer and spiritual direction. She tells me she is hopefull that community resources will be able to assist her with mental health and housing. Claim Review Medical Director services will remain available.
--- NOTE | 2019-09-25 18:13 | NUR ---
SHIFT SUMMARY THIS PT WILL NEED PLACEMENT UPON DISCHARGE. SHE IS WILLING TO DO THIS. SEROQUEL DOSAGE CHANGED TODAY BY , SEE EMAR. RESIDENTIAL WORKER IS INVOLVED. COOPERATIVE WITH CARE. PT WAS MEDICATED FOR PAIN THIS SHIFT, SEE EMAR. 2 MD HOLD. SHE STATED SHE HAS PERIODS OF DEPRESSION STILL. CONTACT PRECAUTIONS FOR ESBL IN THE URINE 09/2019. NAUSEA IS CONTROLLED W/PO REGLAN WITH MEALS.
--- NOTE | 2019-09-26 03:25 | NUR ---
59 year old Female appears older than actual age cooperative with cares pleasant. She does set off bed alarm frequently to toilet. Using BSC and pull up briefs. Several bowel movements tonight. Minimal appetite, medicated for nausea and GI distress x 1 with oral zofran and pepto bismol. Medicated for rib and upper back pain with 1 tyl # 3 with codeine with helpful effect. Denies suicidal ideation, suicide plan in chart and bedside.
[2019-09-26 06:21] LABS: Anion Gap 6 mmol/L (6-16); Blood Urea Nitrogen 7 mg/dL (8-24); Bun/Creatinine Ratio 15.2 (12.0-20.0); CO2, Blood 27 mmol/L (21-32); Calcium, Blood 8.5 mg/dL (8.5-10.1); Chloride, Blood 107 mmol/L (98-108); Creatinine, Blood 0.46 mg/dL (0.40-1.00); Glomerular Filtration Rate >60 (60-); Glucose, Blood 65 mg/dL (70-99); Magnesium, Blood 1.5 mg/dL (1.6-2.4); Potassium, Blood 4.4 mmol/L (3.5-5.5); Sodium, Blood 140 mmol/L (136-145)
--- NOTE | 2019-09-26 16:42 | NUR ---
SHIFT SUMMARY PT AWAITING PLACEMENT. 2 MD HOLD FOR SI. PT IS NOW LOW RISK SI. SHE STATES PERIODS OF DEPRESSION. SPUTUM SAMPLE STILL NEEDED. PAIN MEDICATION AVAILABLE IN EMAR. PT EXPERIENCES FREQUENT UPSET TUMMY, SHE HAS PEPTO AVAILABLE THAT IS EFFECTIVE. SHE IS WORKING WITH PT/OT. CONTACT PRECAUTIONS FOR ESBL IN THE URINE. 1 ASSIST TO BATHROOM TODAY. DR MAYES IS CONSULT. FELICITA FROM [employer] IS FOLLOWING.
--- NOTE | 2019-09-27 02:18 | NUR ---
PT has tele monitor usually SR PT asks to get up with assist to bathroom and tele campus monitor Jessica called to say PT had 10 beat run vtach rate 110. PT up and active during this episode. Denies suicidal intention or plan. Continues on room air, tx for pneumonia. No sputum for culture. DC planning continues as PT unable to [facility]. Pleasant and cooperative. Continues in contact isolation for ESBL in urine. Medicated x 1 with 1 Tyl#3 with codiene with helpful effect
--- NOTE | 2019-09-27 05:54 | NUR ---
DR JEFFREY updated on 10 beat run of vtach around midnight. No further events per tele monitor. PT denies acute distress.
[2019-09-27 08:51] LABS: Anion Gap 6 mmol/L (6-16); Blood Urea Nitrogen 8 mg/dL (8-24); Bun/Creatinine Ratio 17.5 (12.0-20.0); CO2, Blood 26 mmol/L (21-32); Calcium, Blood 8.2 mg/dL (8.5-10.1); Chloride, Blood 106 mmol/L (98-108); Creatinine, Blood 0.46 mg/dL (0.40-1.00); Glomerular Filtration Rate >60 (60-); Glucose, Blood 87 mg/dL (70-99); Magnesium, Blood 1.4 mg/dL (1.6-2.4); Potassium, Blood 4.3 mmol/L (3.5-5.5); Sodium, Blood 138 mmol/L (136-145)
--- NOTE | 2019-09-27 11:06 | NUR ---
PAROL OFFICER AT BEDSIDE TO REMOVE GPS ANKLE MONITOR.
--- NOTE | 2019-09-27 12:20 | NUR ---
PATIENT TRANSFERRED TO ROOM 338. REPORT GIVEN TO JANAK WISE.
--- NOTE | 2019-09-27 19:32 | NUR ---
SHIFT SUMMARY: PATIENT XFR FROM ROOM 349 THIS SHIFT. PT A&O; NO SUICIDAL IDEATION IDENTIFIED; CALM AND COOPERATIVE WITH CARE. MEDICATED FOR CHRONIC BACK PAIN PER EMAR. PATIENT HX GASTRIC BYPASS; CHRONIC NAUSEA/VOMITING; NO SYMPTOMS SINCE ARRIVAL IN ROOM 338. AWAITING PLACEMENT. REPORT GIVEN TO ONCOMING RN.
[2019-09-28 04:40] LABS: BASOPHILS ABSOLUTE AUTO 0.13 K/mm3 (0.00-0.23); BASOPHILS PERCENT AUTO 1 % (0-2); EOSINOPHILS ABSOLUTE AUTO 0.05 K/mm3 (0.00-0.68); EOSINOPHILS PERCENT AUTO 1 % (0-6); Hematocrit 34.6 % (33.0-51.0); Hemoglobin 11.5 g/dL (11.5-16.0); IMMATURE GRAN ABSOLUTE AUTO 0.37 K/mm3 (0.00-0.10); IMMATURE GRAN PERCENT AUTO 4 % (0-1); LYMPHOCYTES ABSOLUTE AUTO 1.57 K/mm3 (0.84-5.20); LYMPHOCYTES PERCENT AUTO 15 % (21-46); MONOCYTES ABSOLUTE AUTO 0.68 K/mm3 (0.16-1.47); MONOCYTES PERCENT AUTO 6 % (4-13); Mean Corpuscular HGB 35.5 pg (26.0-34.0); Mean Corpuscular HGB Conc 33.2 g/dL (31.5-36.5); Mean Corpuscular Volume 107 fL (80-100); Mean Platelet Volume 11.6 fL (9.1-12.4); NEUTROPHILS ABSOLUTE AUTO 7.81 K/mm3 (1.96-9.15); NEUTROPHILS PERCENT AUTO 74 % (41-73); Platelet Count 159 K/mm3 (150-400); RDW Coefficient Variation 23.6 % (11.7-14.2); RDW Standard Deviation 90.3 fL (35.1-46.3); Red Blood Cell Count 3.24 M/mm3 (3.80-5.20); White Blood Cell Count 10.61 K/mm3 (4.00-11.30)
[2019-09-28 04:58] LABS: Anion Gap 6 mmol/L (6-16); Blood Urea Nitrogen 10 mg/dL (8-24); Bun/Creatinine Ratio 24.9 (12.0-20.0); CO2, Blood 26 mmol/L (21-32); Calcium, Blood 8.4 mg/dL (8.5-10.1); Chloride, Blood 105 mmol/L (98-108); Glomerular Filtration Rate >60 (60-); Glucose, Blood 68 mg/dL (70-99); Magnesium, Blood 2.2 mg/dL (1.6-2.4); Potassium, Blood 4.3 mmol/L (3.5-5.5); Sodium, Blood 137 mmol/L (136-145)
--- NOTE | 2019-09-28 05:21 | NUR ---
SHIFT SUMMARY PT IS A 59 Y/O FEMALE, ADMITTED FOR PNA AND SI. PT HAS BEEN DOWNGRADED TO A LOW RISK SI AT THIS TIME, AND IS AWAITING POSSIBLE PLACEMENT. SHE WAS MEDICATED ONCE DURING THE NIGHT FOR CHRONIC PAIN WITH PRN TYLENOL #3. SHE WAS ALSO MEDICATED TWICE WITH PRN PEPTO BISMOL FOR STOMACH UPSET. NO C/O SOB. VITAL SIGNS STABLE. NO OTHER ACUTE CHANGES IN PT CONDITION NOTED DURING THE NIGHT. WILL CONTINUE TO MONITOR AND TREAT PER EMAR UNTIL HAND OFF TO DAY SHIFT RN.
--- NOTE | 2019-09-28 11:01 | NUR ---
SHIFT SUMMARY/AMA PT UNCOOPERATIVE W/CARE T/O SHIFT, REFUSED BREAKFAST TRAY, STATED DURING ASSESSMENT & MED PASS THAT "I WILL BE LEAVING TODAY". VERBALIZED TO W/RN PRESENT THAT HE WAS HERE 30 YEARS AGO AND "WALKED OUT" & THAT THERE IS "NOTING WRONG WITH ME". AT 1025 PT DEMANDED TO HAVE TELE OFF, STATED HE WAS LEAVING, CALLED DR ARTHUR @ 1027 TO ALERT, PT SIGNED AMA FORM & LEFT 1035 VIA W/C TO MAIN ADMITTING.
--- NOTE | 2019-09-28 16:38 | NUR ---
SHIFT SUMMARY PT HAS HAD NO ACUTE CHANGES THIS SHIFT, PT REPORTED ANXIETY ABOUT DRE & EX COMING THIS SHIFT BRINGING DOG TO COME SEE HER, MEDICATED 2X FOR ANXIETY, 1X FOR NAUSEA, 1X FOR UPSET STOMACH, DRE @ BEDSIDE W/DOG AT THIS TIME, PT APPEARS COMFORTABLE, WILL CONT TO MONITOR UNTIL REPORT GIVEN TO NOC RN.
--- NOTE | 2019-09-29 06:39 | NUR ---
SHIFT SUMMARY: A/OX4. DBP ELEVATED X 2 TONIGHT. REPORTS L BACK/RIB/ABD PAIN IMPROVED WITH CURRENT ORDERED ANALGESICS. REPORTS A FEELING OF NAUSEA/ACID REFLUX/OR "ABOUT TO HEAVE" RECURRING APART FROM PO INTAKE- RESOLVED WITH PEPTO BISMOL AND PHENERGAN. NO VOMITING. SLEPT INTERMITTENTLY THROUGH THE NIGHT. GOOD MOOD. NO SUICIDAL IDEATION. COMMUNICATING NEEDS. SEROQUEL EFFECTIVELY REDUCED ANXIETY SYMPTOMS X 2 TONIGHT. PLEASANT AND COOPERATIVE. BED LOW, CALL BUTTON IN REACH.
--- NOTE | 2019-09-29 16:25 | NUR ---
PT IS A/OX3, PLEASANT AND COOPERATIVE, THE PT IS UP WITH ASSIST TO THE BATHROOM, THE PT APPEARS TO BE BREATHING EASILY ON RA AT THIS TIME, THE PT WAS MEDICATED FOR PAINX 1 SO FAR THIS SHIFT, FOR NAUSEA AND ANXITY X2 SO FAR THIS SHIFT, THE PT REPORTED FEELING DEPRESSED AND USESLESS THIS AM, DR. ARTHUR WAS MADE AWARE OF THE PTS FEELINGS, THE PT HAD VISITORS TODAY AND SEEMED TO BE MORE CHEERFUL WHILE THEY WERE PRESENT, CALL LIGHT IN REACH, WILL CONTINUE TO MONITOR AND ASSESS FOR CHANGES
--- NOTE | 2019-09-29 16:53 | NUR ---
PT UP WITNESSED THE PT UP AMBULATING IN THE LEVIN WITH THE MANAGER PROJECT, USEING THE FWW APPRORIATLY, APPEARED TO BE BREATHING EASILY ON RA
--- NOTE | 2019-09-30 04:54 | NUR ---
SHIFT SUMMARY: PT A&O X4. RECIEVED BREATHING TX ONCE PER PT REQUEST. MEDICATED FOR PAIN ONCE PER EMAR. PT OUT OF BED TO BATHROOM W/FWW AND SBA. VOIDING WELL. BM X1. PT REPORTS FEELING BETTER AFTER HAVING VISITORS AND DENIES SUICIDAL IDEATIONS AT THIS TIME. PT GIVEN PRN SEROQUEL PER EMAR. DENIES ABD SX AND REPORTS HER APPETITE IS COMING BACK. PT PLEASANT AND COOPERATIVE WITH CARE T/O SHIFT.
--- NOTE | 2019-09-30 19:44 | NUR ---
SUMMARY- PT A/O, VERBAL AND PLEASANT. IS OPEN AND COMMUNICATIVE, STATES NO ACTIVE SI, AND IS HAPPY TO BE ALIVE, AND HAS CHANGED HER LIFE, RELYING ON HER CATHOLIC SHARMIN AND FRIENDS. SINCE STEVO COPE GAVE HER HEART TO RUFINA AGAIN. SHE GOT UP IN THE CHAIR WITH PT TOODAY, AND UP TO BSC. TOLERATED ACTIVITY FAIR. SLOW, WITH ADEQUATE STRENGTH FOR SHORT DISTANCE. PT USES CALL LIGHT. TOLERATING FOOD AND FLUIDS. PEIN IN L RIBCAGE AREA CONTROLLED WITH TYLENOL #3, AND SITUATUIONAL ANXIETY CONTROLLED WITH SEROQUIL. KERI WISE, MAALOX HELPFUL. REPORTED TO NOC JANAK.
--- NOTE | 2019-10-01 06:29 | NUR ---
HAS BEEN RESTING QUIETLY WITH FEW INTERRUPTIONS. SAID INTERRUPTIONS WERE TO ASSIST TO BATHROOM AND OCCASIONA ANALGESIC - SEE MAR FOR DETAILS. CALL LIGHT IN REACH. NO VOICED SI, AFFECT CHEERFUL WHEN SPEAKING TO NURSE. NHUNG CONTINUE TO MONITOR.
--- NOTE | 2019-10-01 18:27 | NUR ---
SHIFT SUMMARY NO ACUTE CHANGES TO PRESENT THIS SHIFT. PT AWAKE DURING SHIFT REPORT, WATCHING TV. A&O, WITH CALL LT IN REACH. PT CALLED APPROPRIATELY FOR ASSIST TO BTHRM. UP WITH SBA USING FWW TO BTHRM. PT ABLE TO WORK WITH PT/OT. REQUESTED MEDICATIONS THRU OUT THE DAY. CM'S IN TO TALK WITH PT R/T D/C PLANNING. PT REMAINED PLEASANT AND CO-OP THRU OUT THE DAY. NO C/O. CALL LT IN REACH.
--- NOTE | 2019-10-02 05:38 | NUR ---
Awake at intervals to viod in the bathroom. Voiced swelling of BLE, noted increased swelling, BLE elevated on pillows. Will have AM shift follow up with the MD. Call light in reach.
--- NOTE | 2019-10-02 17:43 | NUR ---
PATIENT MET WITH ADULT FOSTER CARE TODAY FOR POSSIBLE PLACEMENT. NO ACUTE CHANGES. ALERT AND ORIENTED AND ABLE TO EXPRESS A MULTIPLE OF NEEDS .
[2019-10-03 06:18] LABS: Anion Gap 6 mmol/L (6-16); Blood Urea Nitrogen 9 mg/dL (8-24); Bun/Creatinine Ratio 24.1 (12.0-20.0); CO2, Blood 24 mmol/L (21-32); Calcium, Blood 7.8 mg/dL (8.5-10.1); Chloride, Blood 109 mmol/L (98-108); Creatinine, Blood 0.37 mg/dL (0.40-1.00); Glomerular Filtration Rate >60 (60-); Glucose, Blood 62 mg/dL (70-99); Potassium, Blood 4.1 mmol/L (3.5-5.5); Sodium, Blood 139 mmol/L (136-145)
--- NOTE | 2019-10-03 09:45 | NUR ---
PT IS QUITE TALKATIVE. PLEASANT COOP A/O/. SOME PAIN RIBS AND LEGS. MED PER EMAR. H/DR REG, NO MURMER NOTED. NO TELE. LUNGS CRACKLES BASES. ON R.A. RESP EASY, UNLABORED. 2 EDEMA BLE. EDEMA NOTED IN RT CHEEK. BT X4. LAST BM TODAY. SOFT. VOIDS SBA TO BATHROOM. BED IN LOW POSITION, CALL LITE IN REACH, CALLS APPROP
--- NOTE | 2019-10-03 17:34 | NUR ---
PT QUITE PLEASANT TODAY, STATES FEELS BETTER TODAY THAN YEST. HAS AMBULATED TO BATHROOM AT LEAST TWICE TODAY. FWW AND GAIT BELT. XHUSB BROUGHT IN PILLS TO VERIFY. DONE. NO CHANGES. NO OTHER CONCERNS AT THIS TIME. BED IN LOW POSITION, CALL LITE IN REACH, CALLS APPROP
--- NOTE | 2019-10-04 05:53 | NUR ---
Patient slept well after taking a shower before bed with the standby assistance of REMOTE SENSING ADVISOR. minimal pain overnight which was relieved completely each time with 1 roxycodone. lung sounds dim but clear in upper lobes. moderate non prductive cough. baseline generalize trace edema, 1+ lower extremities.
--- NOTE | 2019-10-04 16:51 | NUR ---
PT QUITE PLEASANT TODAY. NO C/O PAIN. DID WALK TO BATHROOM TODAY. DID WORK WITH PT TODAY. NO VISITORS NOTED TODAY. NO OTHER CONCERNS AT THIS TIME. BED IN LOW POSITION, CALL LITE IN REACH, CALLS APPROP
--- NOTE | 2019-10-05 04:01 | NUR ---
SHIFT SUMMARY AOX4. LS DIM, DENIES SOB. REPORTS A LITTLE NAUSEA WITH MEALS. PAIN 8/10 IN RIBS, MOSTLY R SIDE. SBA WITH WALKER TO BATHROOM. SCATTERED BRUISING, REDNESS IN ABDOMINAL FOLDS. PT VERY SWOLLEN: LEGS, ARMS, FACE, ABDOMEN. BED ALARM. PT CALLED APPROPRIATELY. CONTACT PRECAUTIONS FOR ESBL IN URINE. NO IV ACCESS. FLEXERIL AND SEROQUEL GIVEN @ 2350 AND 0400. BP WAS 85/57 @ 2145, JUN WAS CALLED AND SHE ORDERED 500ML BOLUS. AFTER ATTEMPTING TO START AN IV AND PT BECOMING MORE ALERT BP WAS 108/70, JUN WAS CALLED AGAIN BOLUS WAS CANCELLED. DC IS PENDING PLACEMENT, HOPEFULLY MONDAY.
--- NOTE | 2019-10-05 10:53 | NUR ---
PT. REFUSED SHOWER DUE TO STATING THAT SHE SHOWERED TODAY AT 4AM BY HERSELF. PT. SEEMS CONFUSED. PT. ALWAYS STATED SHE COULD GO ONE MORE DAY WITH HER CURRENT BEDDING AND DENIED LINENS TO BE CHANGED.
--- NOTE | 2019-10-05 15:17 | NUR ---
ALERT. ORIENTED. CALM. COOPERATIVE. DOES NOT EXHIBIT ANY S.I.UNLABORED RESPIRATIONS. MEDICATED FOR LT LATERAL RIB PAIN W/GOOD RESULTS. AMBULATORY IN HALLWAY W/P/T/, STEADY GAIT W/WALKER AND GAIT BELT. TO WALK AGAIN W/WINE CELLAR WORKER. IN ISOLATION FOR ESBL IN URINE. CALLS APPROPRIATELY. BED IN LOW POSITION. WCTM
--- NOTE | 2019-10-06 04:15 | NUR ---
LEAN CONSULTANT SUMMARY PT A/O X4. FWW WITH GAITBELT AND 1 ASSIST. CALLS APPROPRIATELY, UP A FEW TIMES TO BATHROOM WITH ASSISTANCE. PT STATED SHE HAD BEEN ON [employer] WATCH PREVIOUSLY AND SAID SHE IS GOOD NOW AND DOES NOT HAVE ANY HARMFUL THOUGHTS. PT COMPLAINED OF BILATERAL RIB PAIN. MEDICATED PER EMAR FOR PAIN X1. PT ALSO REPORTED INDIGESTION LATER ON IN THE SHIFT. MAALOX GIVEN. PT REPORTED INDIGESTION BETTER AFTER MAALOX. LUNGS DIM, SOB WITH EXERTION. VSS, WILL CONTINUE TO MONITOR.
[2019-10-06 05:14] LABS: Hematocrit 33.8 % (33.0-51.0); Hemoglobin 11.2 g/dL (11.5-16.0); Mean Corpuscular HGB 36.7 pg (26.0-34.0); Mean Corpuscular HGB Conc 33.1 g/dL (31.5-36.5); Mean Platelet Volume 10.5 fL (9.1-12.4); Platelet Count 226 K/mm3 (150-400); RDW Coefficient Variation 21.5 % (11.7-14.2); Red Blood Cell Count 3.05 M/mm3 (3.80-5.20); White Blood Cell Count 7.75 K/mm3 (4.00-11.30)
[2019-10-06 05:19] LABS: Mean Corpuscular Volume 111 fL (80-100)
[2019-10-06 05:44] LABS: Anion Gap 9 mmol/L (6-16); Blood Urea Nitrogen 11 mg/dL (8-24); Bun/Creatinine Ratio 29.5 (12.0-20.0); CO2, Blood 24 mmol/L (21-32); Calcium, Blood 8.1 mg/dL (8.5-10.1); Chloride, Blood 106 mmol/L (98-108); Creatinine, Blood 0.37 mg/dL (0.40-1.00); Glomerular Filtration Rate >60 (60-); Glucose, Blood 119 mg/dL (70-99); Potassium, Blood 3.7 mmol/L (3.5-5.5); Sodium, Blood 139 mmol/L (136-145)
--- NOTE | 2019-10-06 14:21 | NUR ---
HEATING PAD GIVEN FOR RIB PAIN.
--- NOTE | 2019-10-06 14:51 | NUR ---
ALERT. ORIENTED. COOPERATIVE. SHOWER TODAY. LINEN CHANGED. AMBULATORY W/WALKER ONE PERSON ASSIST IN ROOM. MEDICATED FOR LEFT SIDED RIB PAIN. STS ALWAYS HAS INDIGESTION AND M.O.M. HELPS. UNLABORED RESPIRATIONS. PLEASANT. BED IN LOW POSITION. ABLE TO MAKE NEEDS KNOWN. WCTM.
--- NOTE | 2019-10-06 18:46 | NUR ---
NO CHANGES FROM PRIOR NOTE. STS HEATING PAD HAS HELPED RIB PAIN. WCTM
--- NOTE | 2019-10-07 04:50 | NUR ---
PLATING DEPARTMENT HELPER SUMMARY NO ACUTE CHANGES THIS SHIFT. PT AAOX4 AND PLEASANT. A LITTLE ANXIOUS/RESTLESS THIS AM, GIVEN PRN SEROQUEL. PT HAS RESTED MOST OF THE NIGHT. VSS, WILL CONTINUE TO MONITOR.
--- NOTE | 2019-10-07 18:38 | NUR ---
SHIFT SUMMARY- PT A/O, PLESANT AND COOPERATIVE. PT WORKED WITH PT AND OT THIS AFTERNOON. PT RECIEVED SEVERAL BREATHING TREATMENTS THOROUGHOUT THIS SHIFT. PT SLEPT INTERMITENTLY THROUGHOUT THIS SHIFT. AWAITING PLACMENT.
--- NOTE | 2019-10-08 04:22 | NUR ---
SHIFT SUMMARY CONTACT PRECAUTIONS FOR ESBL IN URINE. AWAITING PLACEMENT. CARDIAC DIET. NO IV ACCESS. STANDBY ASSIST W/FWW & GAITBELT. PT STATES THAT CARE MANAGEMENT HAS FOUND HER A PLACE THAT SHE IS LOOKING FORWARD TO GOING TO. WAS INFORMED THE PT'S EMAR WAS CHANGED TODAY DURING DAY SHIFT. SHE DID ACCEPT THE AVAILABLE PAIN MEDICAION 1 TIME DURING MY SHIFT. RA. A&O X4.
--- NOTE | 2019-10-08 12:39 | NUR ---
ASSUMED CARE: RECIEVED REPORT FROM JANAK SUMMERS. HOSEMAN IN ROOM AT THIS TIME. NO ACUTE NEEDS OR CONCERNS.
--- NOTE | 2019-10-08 18:01 | NUR ---
SHIFT SUMMARY PATIENT A/O. REPORTS NO HALUCINATIONS DURING SHIFT. PATIENT HAS BEEN AMBULATING TO TOILET AND WITH PT/OT WITH FWW. EDEMA ON LOWER EXTREMITIES PRESENT AND PATIENT ON MEDS TO ATTEMPT REDUCTION OF EDEMA. AWAITING PLACEMENT OF PATIENT TO A FOSTER HOME OR ANOTHER APPROPRIATE CARE SETTING. LABS ARE TRENDING TOWARDS BETTER.
--- NOTE | 2019-10-09 17:30 | NUR ---
SHIFT SUMMARY PATIENT A/O. PATIENT UP OUT OF BED TO SHOWER. SKIN FOLDS CARED FOR TO REDUCE RISK OF SKIN BREAKDOWN. PATIENT ENCOURAGED TO OUT OF BED FOR MEALS. PAIN MANAGED THROUGH SCHEDULED/PRN MEDICATIONS. EDEMA OF LOWER EXTREMITIES ADDRESSED TODAY WITH ANTI EMBOLIC STOCKINGS. STILL AWAITING PLACEMENT FOR PATIENT TO APPROPRIATE CARE SETTING.
[2019-10-10 05:21] LABS: BASOPHILS ABSOLUTE AUTO 0.14 K/mm3 (0.00-0.23); BASOPHILS PERCENT AUTO 2 % (0-2); EOSINOPHILS ABSOLUTE AUTO 0.43 K/mm3 (0.00-0.68); EOSINOPHILS PERCENT AUTO 6 % (0-6); Hematocrit 37.5 % (33.0-51.0); Hemoglobin 12.4 g/dL (11.5-16.0); IMMATURE GRAN ABSOLUTE AUTO 0.11 K/mm3 (0.00-0.10); IMMATURE GRAN PERCENT AUTO 2 % (0-1); LYMPHOCYTES ABSOLUTE AUTO 1.05 K/mm3 (0.84-5.20); LYMPHOCYTES PERCENT AUTO 16 % (21-46); MONOCYTES ABSOLUTE AUTO 0.79 K/mm3 (0.16-1.47); MONOCYTES PERCENT AUTO 12 % (4-13); Mean Corpuscular HGB 36.2 pg (26.0-34.0); Mean Corpuscular HGB Conc 33.1 g/dL (31.5-36.5); Mean Corpuscular Volume 109 fL (80-100); NEUTROPHILS ABSOLUTE AUTO 4.22 K/mm3 (1.96-9.15); NEUTROPHILS PERCENT AUTO 63 % (41-73); RDW Coefficient Variation 19.6 % (11.7-14.2); RDW Standard Deviation 79.5 fL (35.1-46.3); Red Blood Cell Count 3.43 M/mm3 (3.80-5.20); White Blood Cell Count 6.74 K/mm3 (4.00-11.30)
[2019-10-10 05:35] LABS: Mean Platelet Volume 10.6 fL (9.1-12.4); Platelet Count 211 K/mm3 (150-400)
[2019-10-10 06:29] LABS: Anion Gap 8 mmol/L (6-16); Blood Urea Nitrogen 12 mg/dL (8-24); Bun/Creatinine Ratio 34.7 (12.0-20.0); CO2, Blood 26 mmol/L (21-32); Calcium, Blood 8.4 mg/dL (8.5-10.1); Chloride, Blood 105 mmol/L (98-108); Creatinine, Blood 0.35 mg/dL (0.40-1.00); Glomerular Filtration Rate >60 (60-); Glucose, Blood 65 mg/dL (70-99); Phosphorus, Blood 3.5 mg/dL (2.5-4.9); Sodium, Blood 139 mmol/L (136-145)
--- NOTE | 2019-10-10 07:18 | NUR ---
NO ACUTE CHANGES TO REPORT.
--- NOTE | 2019-10-10 18:17 | NUR ---
SHIFT SUMMARY PATIENT A/O. PATIENT HAS BEEN UP IN CHAIR FOR MEALS. EDEMA OF LEGS SEEMS TO BE IMPROVING. PAIN MANAGED THROUGH SCHEDULED/PRN MEDICATION ADMINISTRATION. PATIENT VSS. NO ACUTE CHANGES IN CONDITION THROUGHOUT SHIFT. PATIENT WAS ACCEPTED IN [facility] REPORTED BY PATIENT.
--- NOTE | 2019-10-10 23:49 | NUR ---
1941 PT RESTING COMFORTABLY IN BED; PT WASHED BILATERAL LOWER ABD FOLDS AND UNDERNEATH BILATERAL BREASTS WITH SCANT REDNESS NOTED--NYSTATIN POWDER APPLIED; DENIES PAIN OR NAUSEA.
--- NOTE | 2019-10-11 04:47 | NUR ---
SHIFT SUMMARY: 59 Y/O OBESE FEMALE RESTED COMFORTABLY ALL SHIFT; NO REDNESS OR IRRITATION NOTED UNDER PANUS, ABD FOLDS OR BREASTS DURING H.S. CARE; DENIES PAIN OR NAUSEA; ALERT AND ORIENTED X 4; PENDING POSSIBLE TRANSFER TO [facility] ON 10/14/19; BED LOW POSITION WITH CALL LIGHT AT SIDE.
--- NOTE | 2019-10-11 16:38 | NUR ---
SHIFT SUMMARY NO CHANGES IN ASSESSMENT AT THIS TIME. VSS. PT MEDICATED FOR PAIN TWICE THIS SHIFT. SEE EMAR. PT AGREEABLE TO TAKE SHOWER THIS EVENING. PT CONTINUES TO AWAIT PLACEMENT. DC PLANNING CONSULTED. WILL CONTINUE TO MONITOR UNITL TURNOVER IS COMPLETE.
--- NOTE | 2019-10-11 18:10 | NUR ---
PT & FAMILY REQUESTING EXCEDRIN PT & FAMILY REQUESTING EXCEDRIN SPECIFICALLY. PT OFFERED TYLENOL ORDERED. PT STATES TYENOL DOES NOT WORK & THAT SHE NEEDS EXCEDRIN & THAT SHE KNOWS HER BODY. DR PURCELL CALLED & NOTIFIED. EXCEDEBORA ORDERED Q6H PRN. WILL CONTINUE TO MONITOR.
--- NOTE | 2019-10-12 03:34 | NUR ---
BP 93/72. HAS BEEN SLEEPING, AWAKENED FOR VS. VOICED NOT FEELING WELL, DENIED NAUSEA. VOICED HEADACHE. FET ELEVATED DUE TO LOWER BP THAN BEFORE. ANALGESIC TO BE CONSIDERED - SEE MAR FOR DETAILS. CALL LIGHT IN REACH.
--- NOTE | 2019-10-12 04:49 | NUR ---
HAS BEEN RESTING QUIELTY THROUGHOUT MOST OF SHIFT, AWAKENED A WHILE AGO, VOICED NOT FEELING WELL - THAT HSE HAD A HEADACHE. MEDS ADMINISTERED PER MD ORDERS - SEE MAR FOR DETAILS. RESTING QUIETLY AT THIS TIME. CALL LIGHT IN REACH.
--- NOTE | 2019-10-12 16:57 | NUR ---
SHIFT SUMMARY PT HAD FEVER THIS AFTERNOON OF 102.7. PT TREATED WITH TYLENOL & EXCEDRIN. ROOM TEMP DECREASED & BLANKETS REMOVED EXCEPT SHEET. PT TEMP NOW 99.2. OTHER VITALS STABLE. PT CONTINUES TO C/O HEADACHE. TREATED PER EMAR. NO OTHET CHANGES IN ASSESSMENT AT THIS TIME. WILL CONTINUE TO MONITOR UNTIL TURNOVER IS COMPLETE.
--- NOTE | 2019-10-13 03:14 | NUR ---
Has been resting with few interruptions this shift. Awake earlier with complaints of headache. Received analgesics - see MAR for details. Call light in reach. Isolation precautions maintained.
--- NOTE | 2019-10-13 04:31 | NUR ---
LEGS ELEVATED DUE TO LOW BP. ALERT AND ORIENTED. ASYMPTOMATIC. WILL RECHECK BP IN 1/2 TO 1 HR. CALL LIGHT IN REACH,
--- NOTE | 2019-10-13 05:54 | NUR ---
BP LOW - SEE DOC FLOW SHEETS, LEGS WERE ELEVATED, MD NOTIFIED, BOLUS ON NS (500 ML) WAS ORDERED, CURRENTLY ATTEMPTING TO PLACE IV SITE FOR SAID BOLUS. PT ASYMPTOMATIC.
--- NOTE | 2019-10-13 07:21 | NUR ---
IVF infusing, AM nurse to follow up. Alert and oriented.
--- NOTE | 2019-10-13 18:18 | NUR ---
PATIENT A/OX4, UP WITH SBA TO RESTROOM. CONTINUES TO HAVE A HEADACHE, EXCEDRIN AND OXYCODONE GIVEN TO TREAT. VSS THIS SHIFT. 20G IV TO R AC WNL AND SL. NO ACUTE CHANGES THIS SHIFT.
--- NOTE | 2019-10-14 04:05 | NUR ---
SHIFT SUMMARY ADMITTED FOR PNEUMONIA. FULL CODE. CONTACT PRECAUTIONS FOR ESBL IN URINE. AWAITING PLACEMENT. PT ON CPAP W/6 LPM BLEED IN. SHE DESATURATED TO LOW 80'S %. I RAISED BLEED IN TO 8 LPM. SHE AGAIN DESATURATED TO LOW 80'S %. CALLED RT. PT CHANGED TO BIPAP W/15 LPM. SO FAR SATS MAINTAINED 90% +. ONE EPISODE OF DESAT TO 80'S %, BUT THAT WAS ISOLATED AND SHE IMMEDIATELY CORRECTED TO 90%+ WITH NO INTERVENTION. THE PT WAS NOT AMBULATING WHEN THESE DESATS OCCURRED, BUT RESTING IN BED W/HOB @ 90 DEGREES. FLUID OVERLOAD MAY BE POSSIBLE, BUT SHE DID GO HYPOTENSIVE WITH LASIX ADMIN ON A PREVIOUS SHIFT. NO LASIX IS ORDERED OF THIS WRITING.
--- NOTE | 2019-10-14 06:16 | NUR ---
TRANSFER NOTE [facility] CALLED ON THIS PT DUE TO O2 DESATURATION. [facility] TEAM DECIDED TO TRANSFER PT TO ICU. RT, ICU/[facility] RESPONSE NURSE, KOFI, AND MYSELF ACCOMPANIED THIS PT TO ICU - WHERE I GAVE HANDOFF REPORT TO RECEIVING ICU NURSE. ICU NURSE HAD NO FURTHER QUESTIONS. ORDER FOR TRANSFER APPROVED BY HOSPITALIST, WHO WAS INFORMED OF THE SITUATION. PERSONAL POSSESSIONS GATHERED AND SENT WITH PT TO ICU.
--- NOTE | 2019-10-14 06:23 | NUR ---
05:50 PATIENT ARRIVED FROM 3RD FLOOR. ALERT, ORIENTED, NO C/O PAIN, NUMBNESS, TINGLING. HR 95 NSR. STRONG PULSES. TEMPORAL TEMPERATURE = 100.1. LUNG SOUNDS FINE CRACKLES THROUGHOUT. BIPAP IN PLACE, 18, 70%. GI ABDOMEN NON-TENDER, NO C/O INCONTINENCE. PATIENT VOIDED IN BRIEF ON WAY TO UNIT, CHANGED, CLEAR, YELLOW, FOUL ODOR. SKIN CLEAN/DRY/INTACT, SAVE FOR A FEW UPPER EXTREMITY BRUISES FROM IV/LAB STICKS. PATIENT CALM/COOPERATIVE. WILL CONTINUE TO MONITOR.
[2019-10-14 08:11] LABS: Mean Corpuscular HGB 35.3 pg (26.0-34.0); Mean Corpuscular HGB Conc 33.3 g/dL (31.5-36.5); Mean Platelet Volume 10.4 fL (9.1-12.4); Platelet Count 173 K/mm3 (150-400); RDW Coefficient Variation 17.8 % (11.7-14.2); RDW Standard Deviation 69.9 fL (35.1-46.3); Red Blood Cell Count 3.12 M/mm3 (3.80-5.20); White Blood Cell Count 12.76 K/mm3 (4.00-11.30)
[2019-10-14 08:16] LABS: Mean Corpuscular Volume 106 fL (80-100)
--- NOTE | 2019-10-14 08:28 | NUR ---
ASSUMED CARE / DR PURCELL: REPORT RECEIVED FROM ADALID Norton RN. ASSUMED CARE OF THIS PT AT APPROX 0700. ON ASSESSMENT, THE PT IS RESTING QUIETLY W/ BIPAP IN PLACE. LS ARE DIM T/O, BIPAP SETTINGS 18/14 & 70% FIO2. O2 SATS > 95% ON BIPAP, DESATS QUICKLY TO 82% IF BIPAP REMOVED. HOLDING PO MEDS THIS AM. MONITOR SHOWS SR W/ HR 90s, OCCASIONAL PACs, BP STABLE. PT HAS NO GI/ COMPLAINTS, ATTENDS IN PLACE FOR INCONTINENCE. SKIN FRAGILE OVERALL, NYSTATIN POWDER ORDERED TO FOLDS. DR PURCELL IN ROOM TO EVAL PT, NOTIFIED HIM OF PT's CHANGED CONDITION OVER NIGHT & OF PENDING CXR. STS HE MAY START ABX IF CXR SHOWING PNA, BUT NO CHANGES AT THIS TIME. WILL CONTINUE TO MONITOR & UPDATE NEEDED.
[2019-10-14 08:35] LABS: Magnesium, Blood 1.9 mg/dL (1.6-2.4)
[2019-10-14 08:37] LABS: Anion Gap 7 mmol/L (6-16); Blood Urea Nitrogen 9 mg/dL (8-24); Bun/Creatinine Ratio 25.4 (12.0-20.0); CO2, Blood 26 mmol/L (21-32); Calcium, Blood 8.2 mg/dL (8.5-10.1); Chloride, Blood 106 mmol/L (98-108); Creatinine, Blood 0.35 mg/dL (0.40-1.00); Glomerular Filtration Rate >60 (60-); Glucose, Blood 69 mg/dL (70-99); Potassium, Blood 3.9 mmol/L (3.5-5.5); Sodium, Blood 139 mmol/L (136-145); Troponin I <0.015 ng/mL (0.000-0.040)
--- NOTE | 2019-10-14 19:03 | NUR ---
SHIFT SUMMARY: PT ABLE TO SIT UP IN CHAIR & BE PLACED ON 10L OXYMIZER W/ STABLE SATS FOR APPROX 30 MINS. SHE THEN AMBULATED TO THE TOILET W/O ASSISTANCE OR NOTIFYING RN & DESATS TO APPROX 78%. PT BACK TO BED & PLACED BACK ON BIPAP AT THAT TIME. LS REMAIN DIM T/O, BIPAP SETTINGS UNCHANGED. MONITOR SHOWS SR W/ FREQUENT PACs, HR 80s. BP STABLE. NO GI/ COMPLAINTS, ATTENDS IN PLACE FOR URINARY INCONTINENCE. NYSTATIN TO RED, YEASTY, FOLDS ORDERED. WILL CONTINUE TO MONITOR & REPORT OFF TO ONCOMING RN.
--- NOTE | 2019-10-14 20:00 | NUR ---
ASSUME CARE: RESTS QUIETLY WHEN UNDISTURBED. MONITOR INTACT SHOWING SINUS RHYTHM- SINUS TACH HEART RATE 90'S-100'S. FAMILY AT BEDSIDE. ATTENTIVE TO CARES. LUNG SOUNDS DECREASED THROUGHOUT. BIPAP IN PLACE AT 18/14 AND 70% SPO2 94% DESATURATES WITH ANY ACTIVITY REPOSITIONING, TALKING, ETC. ABLE TO TOLERATE AMALL SIPS OF WATER WITH MEDS. HOWEVER DESATURATES TO 85% RECOVERS SLOWLY ATTENDS IN PLACE SECONDARY TO INCONTINENCE. ABDOMEN SOFT WITH BOWEL SOUNDS FOUR QUADS. ASSISTS WITH REPOSITIONING. CONTINUE TO MONITOR AND REPORT CHANGE IN PATIENT CONDITION.
--- NOTE | 2019-10-15 04:45 | NUR ---
DR JIMENEZ NOTIFIED OF LOW BLOOD PRESSURE ORDERS NOTED
--- NOTE | 2019-10-15 06:15 | NUR ---
SHIFT SUMMARY; RESTS QUIETLY WHEN UNDISTURBED MONITOR INTACT SHOWING SINUS RHYTHM WITH PAC TO SINUS TACH IN THE 120'S. NS BOULUS OF ONE LITER CONTINUES TO INFUSE SECONDARY TO LOW BLOOD PRESSURE. LUNG SOUNDS REMAIN DECREASED THROUGHOUT. REMAINS ON BIPAP WITH SETTINGS OF 18/14 AND FIO2 100% SPO2 CONTINUES TO BE 84-92% ABDOMEN SOFT WITH BOWEL SOUNDS FOUR QUADS. ATTENDS INTACT SECONDARY TO INCONTINENCE. ASSISTS WITH REPOSITIONING. CONTINUE TO MONITOR AND REPORT CHANGE IN PATIENT CONDITION.
--- NOTE | 2019-10-15 07:45 | NUR ---
ASSUMED CARE / DR PURCELL: REPORT RECEIVED FROM GISELE Day RN. ASSUMED CARE OF THIS PT AT APPROX 0700. ON ASSESSMENT, THE PT IS VERY LETHARGIC. CBG CHECKED R/T HX OF LOW AM GLUCOSE LEVELS, CBG 54, TREATED PER HYPOGLYCEMIA PROTOCOL W/ D50 PT IS CURRENTLY UNABLE TO COME OFF BIPAP. WILL RECHECK CBG SOON. PT CURRENTLY W/ LOW BP READINGS, MAP 60-65, S/P 1L NS BOLUS PER EMAR. BIPAP SETTINGS 14/10 & 100% FIO2, PT W/ O2 SATS 92-95%. MONITOR SHOWS SR W/ HR 80s. PT EDEMATOUS TO BLE, MORE SO THAN YESTERDAY. CALL TO PROVIDER TO NOTIFY HIM OF ABOVE CHANGES & THAT NO AM LABWORK WAS ORDERED. HE STS HE WILL PLACE ORDERS FOR AM LABS & THAT THE PT SHOULD BE CHANGED BACK TO ICU STATUS. ORDERS TO BE PLACED FOR DIFFERENT IVFs WELL FOR LOW CBG READINGS. WILL CONTINUE TO MONITOR & UPDATE NEEDED.
[2019-10-15 08:22] LABS: Hematocrit 32.9 % (33.0-51.0); Hemoglobin 10.4 g/dL (11.5-16.0); Mean Corpuscular HGB 35.4 pg (26.0-34.0); Mean Corpuscular HGB Conc 31.6 g/dL (31.5-36.5); Platelet Count 220 K/mm3 (150-400); RDW Coefficient Variation 17.7 % (11.7-14.2); RDW Standard Deviation 73.9 fL (35.1-46.3); Red Blood Cell Count 2.94 M/mm3 (3.80-5.20); White Blood Cell Count 13.11 K/mm3 (4.00-11.30)
[2019-10-15 08:40] LABS: Anion Gap 7 mmol/L (6-16); Blood Urea Nitrogen 9 mg/dL (8-24); Bun/Creatinine Ratio 20.1 (12.0-20.0); CO2, Blood 24 mmol/L (21-32); Calcium, Blood 7.6 mg/dL (8.5-10.1); Chloride, Blood 109 mmol/L (98-108); Creatinine, Blood 0.45 mg/dL (0.40-1.00); Glomerular Filtration Rate >60 (60-); Glucose, Blood 83 mg/dL (70-99); Potassium, Blood 3.6 mmol/L (3.5-5.5); Sodium, Blood 140 mmol/L (136-145)
[2019-10-15 08:56] LABS: Mean Corpuscular Volume 112 fL (80-100)
--- NOTE | 2019-10-15 10:50 | NUR ---
UPDATE: PT CONTINUES HAVING DESATURATIONS DOWN TO 80%, INCREASED TO 85% WHEN PT IS RELAXING. BIPAP SETTINGS CURRENTLY 12/8 & 100% FIO2. POSSIBILITY OF INTUBATION HAS BEEN DISCUSSED W/ PT, SHE STS BEING OKAY W/ INTUBATION LONG SHE IS "KNOCKED OUT." RT CHANGING BIPAP PRESSURE SETTINGS ABLE TO TRY & MAINTAIN PT's SATS. PT HAS REQUESTED THAT THIS RN CALL & UPDATE HER SISTER, NELLIE. NO ANSWER, MESSAGE LEFT FOR NELLIE TO RETURN CALL. WILL CONTINUE TO MONITOR & UPDATE NEEDED.
--- NOTE | 2019-10-15 15:22 | NUR ---
PT AWAKE, ALERT, ON BIPAP. SISTER AT BEDSIDE. BIPAP TUBING DISCONNECTED BRIEFLY-OXYGEN SATURATIONS READING 31%, RECONNECTED WITH SLOW IMPROVEMENT. DR. BECERRA HERE. PT STATES "WANTS TO LIVE", "WANTS EVERYTHING DONE". EXPLAINED PLAN. SET UP FOR INTUBATION
--- NOTE | 2019-10-15 15:34 | NUR ---
PT INTUBATED BY DR. BECERRA 8.0 ETT, 22 HEATH WITHOUT DIFFICULTY. OXYGEN SATURATIONS DECREASED. PROPOFOL GTT INFUSING AT 30 MCG/KG/MIN, PT LIGHTLY SEDATED, RESTRAINTS ON. HYPOTENSIVE. NORMAL SALINE STARTED
[2019-10-15 16:54] LABS: Source, Urine Catheter
[2019-10-15 16:56] LABS: PO2 Arterial 57.3 mmHg (80-100); pH Blood Arterial 7.42 (7.35-7.45)
[2019-10-15 17:03] LABS: Blood, Urine Neg (Neg); Glucose Qualitative, Urine Neg (Neg); Ketones, Urine Neg (Neg); Leukocyte Esterase, Urine 1+ (Neg); Nitrite, Urine Neg (Neg); Protein, Urine Neg (Neg); Urobilinogen, Urine 3+ (Normal)
[2019-10-15 17:13] LABS: Appearance, Urine Clear (Clear); Bilirubin, Urine 1+ (Neg); Color, Urine Amber (P-Yellow)
[2019-10-15 17:15] LABS: Bacteria Few /hpf; Red Blood Cells, Urine Rare /hpf (0-2); Squamous Epithelial Cells Rare /hpf (Few); Transitional Epithelial Cells Rare /hpf (0-Rare); White Blood Cells, Urine 0-2 /hpf (0-5)
--- NOTE | 2019-10-15 19:14 | NUR ---
SHIFT SUMMARY: CENTRAL LINE PLACED AT [address] BECERRA TO R IJ, LEVOPHED & VASOPRESSIN INITIATED FOR BP MANAGEMENT. SEDATION INCREASED & PT NOW BREATHING MORE EASILY. LS W/ FINE CRACKLES TO BASES, ETT SUCTIONED SPUTUM IS POZO & THICK, PINK TINGED. VENT SETTINGS: PC 15, PEEP 15, FIO2 85%. O2 SATS > 92% CURRENTLY, TV > 400. OGT INSERTED EASILY & THEN RESISTANCE NOTED, LEFT IN PLACE FOR CXR & SHOWS THAT OGT SHOULD BE ADVANCED 10CM, PT HAS HX GASTRIC BYPASS. TEMP RIVERS INSERTED W/ DARK, PURULENT URINE DRAINAGE NOTED. URINE COLLECTED & SENT FOR UA AT TIME OF CATHETER PLACEMENT WAS NOT PURULENT & F/U UA MAY BE NEEDED. REPORT HAS BEEN GIVEN TO JOYCE Mendiola RN TO ASSUME CARE.
--- NOTE | 2019-10-15 23:41 | NUR ---
START OF SHIFT: REPORT FROM PRABHU BRICENO. PT INTUBATED SEDATION C/ PROPOFOL. LEVOPHED AND VASOPRESSIN INFUSING. VSS. VENT: A/C 20 P1 15, PEEP 15, FiO2 80%. PT GIVEN BEDBATH C/ LINEN CHANGE. PT DESAT TO 82% WHEN LYING FLAT SUPINE. RIVERS PATENT AND DRAINING TO GRAVITY. SCD'S IN PLACE. NYSTATIN APPLIED TO SKIN FOLDS. WILL CONTINUE TO MONITOR, TURN Q2 HOURS.
[2019-10-16 03:34] LABS: BASOPHILS ABSOLUTE AUTO 0.08 K/mm3 (0.00-0.23); BASOPHILS PERCENT AUTO 0 % (0-2); EOSINOPHILS ABSOLUTE AUTO 0.33 K/mm3 (0.00-0.68); EOSINOPHILS PERCENT AUTO 2 % (0-6); Hematocrit 30.3 % (33.0-51.0); IMMATURE GRAN ABSOLUTE AUTO 0.27 K/mm3 (0.00-0.10); IMMATURE GRAN PERCENT AUTO 2 % (0-1); LYMPHOCYTES ABSOLUTE AUTO 1.35 K/mm3 (0.84-5.20); LYMPHOCYTES PERCENT AUTO 8 % (21-46); MONOCYTES PERCENT AUTO 6 % (4-13); Mean Corpuscular HGB 36.1 pg (26.0-34.0); Mean Platelet Volume 9.7 fL (9.1-12.4); NEUTROPHILS ABSOLUTE AUTO 14.75 K/mm3 (1.96-9.15); NEUTROPHILS PERCENT AUTO 83 % (41-73); Platelet Count 326 K/mm3 (150-400); RDW Coefficient Variation 17.2 % (11.7-14.2); RDW Standard Deviation 69.6 fL (35.1-46.3); Red Blood Cell Count 2.77 M/mm3 (3.80-5.20); White Blood Cell Count 17.88 K/mm3 (4.00-11.30)
[2019-10-16 03:35] LABS: Mean Corpuscular Volume 109 fL (80-100)
[2019-10-16 03:49] LABS: Anion Gap 6 mmol/L (6-16); Blood Urea Nitrogen 9 mg/dL (8-24); Bun/Creatinine Ratio 23.5 (12.0-20.0); CO2, Blood 26 mmol/L (21-32); Calcium, Blood 7.6 mg/dL (8.5-10.1); Chloride, Blood 107 mmol/L (98-108); Creatinine, Blood 0.38 mg/dL (0.40-1.00); Glomerular Filtration Rate >60 (60-); Glucose, Blood 96 mg/dL (70-99); Magnesium, Blood 1.7 mg/dL (1.6-2.4); Phosphorus, Blood 2.8 mg/dL (2.5-4.9); Potassium, Blood 3.5 mmol/L (3.5-5.5); Sodium, Blood 139 mmol/L (136-145)
--- NOTE | 2019-10-16 07:25 | NUR ---
SHIFT SUMMARY: PT REMAINS ON VENT: AC 20, P1 15, PEEP 15, FiO2 75%. PT CURRENTLY REMAINS ON LEVOPHED AT 7 mcg, VASOPRESSON OFF, PROPOFOL AT 40. URINE OUTPUT 300cc TEA-COLORED PURULENT URINE OUT. REPORT TO SISSY BRICENO.
--- NOTE | 2019-10-16 08:13 | NUR ---
ASSUMED CARE AT 0700 REPORT FROM JOYCE Mendiola RN. PT REPOSITIONED WITH LIFT
--- NOTE | 2019-10-16 08:14 | NUR ---
MD VISIT DR. BECERRA IN. VENT FIO2 AND PEEP DECREASED. ORDER FOR OGT/DOBHOFF ATTEMPT
--- NOTE | 2019-10-16 11:01 | NUR ---
FIO2 TO 70% FOR BIOX 87% VISITORS IN FOR VERY SHORT VISIT
[2019-10-16 11:16] LABS: Adenovirus Not Detected (NOT DETECT); Bordetella pertussis Not Detected (NOT DETECT); Chlamydophila pneumoniae Not Detected (NOT DETECT); Coronavirus 229E Not Detected (NOT DETECT); Coronavirus HKU1 Not Detected (NOT DETECT); Coronavirus NL63 Not Detected (NOT DETECT); Coronavirus OC43 Not Detected (NOT DETECT); Human Metapneumovirus Not Detected (NOT DETECT); Human Rhinovirus/Enterovirus Not Detected (NOT DETECT); Influenza A Not Detected (NOT DETECT); Influenza A/2009-H1 Not Detected (NOT DETECT); Influenza A/H1 Not Detected (NOT DETECT); Influenza A/H3 Not Detected (NOT DETECT); Influenza B Not Detected (NOT DETECT); Mycoplasma pneumoniae Not Detected (NOT DETECT); Parainfluenza Virus 1 Not Detected (NOT DETECT); Parainfluenza Virus 2 Not Detected (NOT DETECT); Parainfluenza Virus 3 Not Detected (NOT DETECT); Parainfluenza Virus 4 Not Detected (NOT DETECT); Respiratory Syncytial Virus Not Detected (NOT DETECT)
--- NOTE | 2019-10-16 12:08 | NUR ---
LATE ENTRY: 0930 16FR OGT PLACED AND CXR ORDERED
--- NOTE | 2019-10-16 12:10 | NUR ---
OGT PLACEMENT CONFIRMED BY DR. BECERRA. POSITIVE BLOOD CULTURES CALLED
--- NOTE | 2019-10-16 13:54 | NUR ---
TYLENOL GIVEN FOR FEVER. TUBE FEED STARTED AT 20 ML/HR (GOAL OF 40). 30 ML FLUSH Q 4HR
--- NOTE | 2019-10-16 15:14 | NUR ---
MD VISIT DR. BECERRA IN
--- NOTE | 2019-10-16 15:26 | NUR ---
VASOPRESSIN BACK ON
--- NOTE | 2019-10-16 17:32 | NUR ---
NOTIFIED DR. BECERRA OF LOW URINE OUTPUT. WILL WATCH IT FOR TONIGHT. VASOPRESSIN BACK ON FOR INCREASED BP. LEVOPHED AT 8 MCG/MIN LR 100 ML/HR. INCREASED FLUID INTAKE WITH ANTIBIOTICS
--- NOTE | 2019-10-16 18:43 | NUR ---
LEVOPHED AT 8 MCG/MIN. VASOPRESSIN ON. LR 100/HR. TF STARTED. PROPOFOL AT 40 MCG/KG/MIN. WILL REPORT TO ONCOMING SHIFT.
--- NOTE | 2019-10-16 19:00 | NUR ---
ASSUMED CARE ASSUMED CARE OF PATIENT. REMAINS INTUBATED- AC20/PC15, PEEP 15, FIO2 70%. RR 28-32. SEDATED WITH PROPOFOL @ 30MCG/KG/MIN. ATTEMPTS TO OPEN EYES WITH VERBAL/NOXIOUS STIMULI. WITHDRAWS TO STIMULI. MINIMAL SPONTANEOUS MOVEMENT NOTED. BILATERAL SOFT WRIST RESTRAINTS IN PLACE TO PREVENT SELF-EXTUBATION. MONITOR SHOWS IRREGULAR RHYTHM, SINUS WITH PACs. BP STABLE WITH LEVOPHED AT 8MCG/MIN AND VASOPPRESSIN @ 0.04 UNITS/MIN. OG WITH VITAL HIGH PROTEIN AT 20CC/HR (GOAL IS 40CC/HR). RIVERS PATENT AND DRAINING PINKISH-YELLOW URINE WITH MODERATE AMOUNT OF SEDIMENT. PAS TO BLE. LR INFUSING @ 100CC/HR PER ORDER. SEE SHIFT ASSESSMENT FOR FULL ASSESSMENT.
[2019-10-17 03:29] LABS: BASOPHILS PERCENT AUTO 1 % (0-2); EOSINOPHILS ABSOLUTE AUTO 1.08 K/mm3 (0.00-0.68); EOSINOPHILS PERCENT AUTO 7 % (0-6); Hematocrit 29.4 % (33.0-51.0); Hemoglobin 9.6 g/dL (11.5-16.0); IMMATURE GRAN ABSOLUTE AUTO 0.32 K/mm3 (0.00-0.10); IMMATURE GRAN PERCENT AUTO 2 % (0-1); LYMPHOCYTES ABSOLUTE AUTO 1.35 K/mm3 (0.84-5.20); LYMPHOCYTES PERCENT AUTO 9 % (21-46); MONOCYTES ABSOLUTE AUTO 1.11 K/mm3 (0.16-1.47); MONOCYTES PERCENT AUTO 7 % (4-13); Mean Corpuscular HGB 35.4 pg (26.0-34.0); Mean Corpuscular HGB Conc 32.7 g/dL (31.5-36.5); Mean Corpuscular Volume 109 fL (80-100); Mean Platelet Volume 9.8 fL (9.1-12.4); NEUTROPHILS ABSOLUTE AUTO 11.84 K/mm3 (1.96-9.15); NEUTROPHILS PERCENT AUTO 75 % (41-73); Platelet Count 326 K/mm3 (150-400); RDW Coefficient Variation 17.1 % (11.7-14.2); RDW Standard Deviation 68.1 fL (35.1-46.3); Red Blood Cell Count 2.71 M/mm3 (3.80-5.20)
[2019-10-17 03:47] LABS: Alanine Aminotransfer (ALT/SGP 22 U/L (12-78); Albumin, Blood 1.4 g/dL (3.4-5.0); Albumin/Globulin Ratio 0.4 (0.8-1.8); Alk Phos 252 U/L (50-136); Anion Gap 5 mmol/L (6-16); Aspartate Aminotrans (AST/SGOT 61 U/L (12-37); Bilirubin, Total 1.2 mg/dL (0.1-1.0); Blood Urea Nitrogen 8 mg/dL (8-24); Bun/Creatinine Ratio 25.6 (12.0-20.0); CO2, Blood 26 mmol/L (21-32); Calcium, Blood 7.5 mg/dL (8.5-10.1); Chloride, Blood 104 mmol/L (98-108); Creatinine, Blood 0.31 mg/dL (0.40-1.00); Globulin, Blood 3.5 g/dL (2.2-4.0); Glomerular Filtration Rate >60 (60-); Glucose, Blood 95 mg/dL (70-99); Magnesium, Blood 1.6 mg/dL (1.6-2.4); Phosphorus, Blood 2.1 mg/dL (2.5-4.9); Potassium, Blood 3.5 mmol/L (3.5-5.5); Sodium, Blood 135 mmol/L (136-145); Total Protein, Blood 4.9 g/dL (6.4-8.2)
[2019-10-17 05:40] LABS: PCO2 Arterial 40.7 mmHg (35-45); PO2 Arterial 61.5 mmHg (80-100); pH Blood Arterial 7.43 (7.35-7.45)
--- NOTE | 2019-10-17 05:57 | NUR ---
SHIFT SUMMARY NO ACUTE CHANGES. REMAINS INTUBATED- AC20/PC 15, PEEP 15, FIO2 65-70%. FIO2 IS NOW AT 70%. RR 20s-30s. SEDATED WITH PROPOFOL AT 30MCG/KG/MIN. FACIAL GRIMACING NOTED. PT DOES ATTEMPT TO OPEN EYES TO NOXIOUS STIMULI AND MOVES EXTREMITIES MINIMALLY TO STIMULI. NOT FOLLOWING ANY COMMANDS. BILATERAL SOFT WRIST RESTRAINTS REMAIN IN PLACE. BP STABLE WITH LEVOPHED BETWEEN 5-8MCG/MIN- NOW INFUSING @ 5MCG/MIN. VASOPRESSIN HAS BEEN OFF SINCE APPROXIMATELY 2100. LR INFUSING @ 100CC/HR. OG WITH VITAL HIGH PROTEIN @ 30CC/HR (GOAL RATE IS 40CC/HR). RESIDUAL 0-10CC. RIVRES PATENT AND DRAINING THICK PINKISH-YELLOW URINE WITH SEDIMENT. PAS TO BLE. RIGHT IJ NOTED. ABNORMAL LABS CALLED TO DR. BECERRA AND ELECTROLYTE REPLACEMENTS ORDERED. WILL REPORT TO DAY SHIFT RN WHEN AVAILABLE.
--- NOTE | 2019-10-17 08:15 | NUR ---
INITIAL ASSESSMENT PATIENT INTUBATED AND SEDATED. PATIENT RESPONDS TO PAINFUL STIMULI/ NURSING CARE BY GRIMACING AND MINIMAL MOVEMENT TO EXTREMITIES. PUPILS 7+ IN SIZE AND REACT BRISKLY TO LIGHT. SCLERAL EDEMA NOTED. PATIENT HAS TEMP OF 99.8 DEGREES FAHRENHEIT. PATIENT SATTING 90% AND GREATER ON VENT SETTINGS OF AC 20, PC 15, PEEP 15, 70% FIO2. LUNGS CLEAR IN UPPER LOBES AND COARSE IN LOWER LOBES. MODERATE AMOUNT OF THICK, WHITE SECRETIONS BEING SUCTIONED FROM ETT. PATIENT DESATS QUICKLY INTO THE 70S WITH REPOSITIONING. RR 30S TO 40S. PATIENT IN SR WITH PACS. HR IN THE 80S. BP STABLE ON LEVOPHED AT 4 MCG/ MINUTE. SCDS IN PLACE. ABDOMEN IS MILDLY DISTENDED, SOFT, APPEARS NONTENDER, WITH HYPERACTIVE BS. OG IN PLACE. VITAL HIGH PROTEIN INFUSING AT GOAL RATE OF 40 MLS/ HOUR WITH 30 ML WATER FLUSH Q4H. RESIDUAL OF ZERO THIS AM. PATIENT'S LAST BM ON THE . PRN MIRALAX GIVEN. TEMP PROBE RIVERS IN PLACE- DRAINING DARK YELLOW URINE WITH PINK SEDIMENT NOTED. ABDOMINAL AND L BREAST FOLDS REDDENED- SCHEDULED NYSTATIN BEING APPLIED. SCATTERED BRUISES NOTED TO BUES. SCRATCHES NOTED TO SHINS. PATIENT HAS GENERALIZED EDEMA. 2+ EDEMA NOTED IN FEET AND HANDS. PROPOFOL INFUSING AT 40 MCG/ KG/ MINUTE, LR AT 100 MLS/ HOUR, NS TKO. PATIENT RECEIVED KPHOS AND MAG REPLACEMENTS THIS AM. BED LOW, CALL LIGHT IN REACH. WILL CONTINUE TO MONITOR PATIENT FREQUENTLY THROUGHOUT SHIFT.
--- NOTE | 2019-10-17 09:02 | NUR ---
FIO2 INCREASED FROM 70 TO 80%.
--- NOTE | 2019-10-17 09:35 | NUR ---
FIO2 INCREASED FROM 80 TO 90%. WILL CONTINUE TO MONITOR.
--- NOTE | 2019-10-17 11:10 | NUR ---
FIO2 DECREASED FROM 100 TO 80% FIO2.
--- NOTE | 2019-10-17 11:13 | NUR ---
FIO2 DECREASED FROM 80 TO 70%. WILL CONTINUE TO MONITOR.
--- NOTE | 2019-10-17 11:41 | NUR ---
DR. BECERRA, RT SAVANNA, CHARGE NURSE, PRIMARY NURSE, 2 SECONDARY NURSES AND TECHNICAL SERVICES CONSULTANT IN ROOM AND PRONED PATIENT. PATIENT CURRENTLY SATTING 93% ON 100 % FIO2. PATIENT PRONED CONTINUED TO HAVE DECREASED O2 SATURATIONS. TF TURNED OFF PRIOR TO PRONING. PATIENT APPEARS WITHOUT PAIN OR DISTRESS AT THIS TIME. WILL CONTINUE TO MONITOR.
--- NOTE | 2019-10-17 12:00 | NUR ---
PATIENT REMAINS INTUBATED AND SEDATED. PATIENT PLACED IN PRONE POSITION SHORT TIME AGO. O2 SATS IN THE 90S. VENT SETTINGS AC 20, PC 15, PEEP 15, 100% FIO2. RR IN THE 30S. TMAX OF 100.7 DEGREES FAHRENHEIT. PATIENT IN SR TO ST, WITH PACS. HR 90S TO 100S. BP STABLE ON LEVOPHED AT 2 MCG/ MINUTE. TF OFF. NO OTHER CHANGES TO NOTE ON AT THIS TIME. SISTER CAME IN TO SEE PATIENT. WILL CONTINUE TO MONITOR.
--- NOTE | 2019-10-17 13:45 | NUR ---
DR. BECERRA INFORMED OF BLOOD SUGAR OF 81. NO ORDERS RECEIVED AT THIS TIME.
--- NOTE | 2019-10-17 14:46 | NUR ---
PATIENT HEAD TURNED TO THE OPPOSITE SIDE AND HIPS REPOSITIONED AT 1435. PATIENT GIVEN PRN TYLENOL FOR FEVER. PATIENT GIVEN PRN FENTANYL AND PROPOFOL INCREASED TO SEE IF WOULD MAKE PATIENT MORE COMFORTABLE. PATIENT RRS IN THE HIGH 30S TO 40S. PATIENT REMAINS ON 100% FIO2, HOWEVER SPO2 RANGING FROM 86% TO 91%.
--- NOTE | 2019-10-17 14:59 | NUR ---
DR. BECERRA CALLED AND INFORMED OF PATIENT SATTING 86 TO 91% ON 100% FIO2. INFORMED THAT PATIENT GIVEN PRN FENTANYL AND PROPOFOL AND HEAD TURNED TO OTHER SIDE TO SEE IF WOULD HELP WITH O2 SATURATIONS AND WITH INCREASED RESPIRATORY RATE. DR. BECERRA STATED TO CHANGE PEEP TO 17 AND INSPIRATORY PRESSURE TO 13. SAVANNA DINH CALLED AND IS IN PATIENT ROOM AT THIS TIME CHANGING SETTINGS.
--- NOTE | 2019-10-17 16:00 | NUR ---
PATIENT REMAINS INTUBATED AND SEDATED. PATIENT REMAINS PRONE. ICE PACKS APPLIED TO AXILLI AND GROIN FOR TEMP OF 101.7 DEGREES FAHRENHEIT. PATIENT IN SR WITH PACS, HR 80S TO 90S. BP STABLE ON LEVOPHED AT 2 MCG/ MINUTE. PATIENT ON VENT SETTINGS OF AC 20, PC 13, PEEP 17, 100% FIO2. PATIENT SATTING 90% AND GREATER ON THESE SETTINGS. LUNGS STILL REMAIN CLEAR IN UPPER LOBES AND COARSE IN LOWER LOBES. OG REMAINS CLAMPED. PATIENT DOES NOT APPEAR IN PAIN OR DISTRESS AT THIS TIME. NO OTHER ACUTE CHANGES TO NOTE ON. WILL CONTINUE TO MONITOR.
--- NOTE | 2019-10-17 16:50 | NUR ---
Met pt's ex- at bedside. He had been laying over head of bed, talking to pt. Pt intubated and non-responsive. He wanted information on dx and prognosis. Neither of which I could provide. He admitted they had a difficult divorce. He appeared concerned, but said "its too hard to see her like this." I affirmed excellent care and attention. He did not stay long. I will remain available to pt and family.
--- NOTE | 2019-10-17 17:13 | NUR ---
DR. BECERRA CALLED TO CHECK UP ON PATIENT. INFORMED THAT PATIENT IS CURRENTLY SATTING 96% ON VENT SETTINGS OF AC 20, PC 13, PEEP 17, AND 100% FIO2. DR. BECERRA STATED TO SWITCH PATIENT BACK TO PREVIOUS SETTINGS IS DOING WELL. SAVANNA DINH NOTIFIED.
--- NOTE | 2019-10-17 18:19 | NUR ---
DR. BECERRA CALLED AND INFORMED OF PATIENT'S BLOOD SUGAR OF 66. ORDERED FOR 1/2 AMP OF D50 AND D5 1/2 NS AT 75 MLS/ HOUR UNTIL TUBE FEED RESUMED. INFORMED THAT PATIENT HOLDING STEADY O2 SAT 90% AND ABOVE AT THIS TIME ON PC 15, PEEP 15, 100% FIO2. PRIMARY NURSE SPOKE WITH PATIENT'S SISTER, NELLIE, AND ASKED IF IT WOULD BE OKAY WITH PATIENT, IF SHE WERE AWAKE, FOR EX- TO COME IN AND VISIT HERE BECAUSE HE CAME IN FOR ABOUT 15 MINUTES TODAY. SISTER SAID THAT IT WAS OKAY AND THAT THEY WERE TALKING WHEN PATIENT WAS ON THE OTHER UNIT. SISTER SAID "HE HAS TO DEAL WITH THIS TOO". DR. BECERRA MADE AWARE OF THIS CONVERSATION.
--- NOTE | 2019-10-17 18:36 | NUR ---
SHIFT SUMMARY PATIENT REMAINED INTUBATED AND SEDATED. PATIENT GIVEN PRN FENTANYL FOR GRIMACING AND INCREASED RRS. PATIENT HAD TMAX OF 102.0 DEGREES FAHRENHEIT. FAN PLACED ON PATIENT, ROOM TEMP TURNED DOWN, NO BLANKETS ON PATIENT AND PRN TYLENOL GIVEN. LUNGS REMAINED CLEAR IN UPPER LOBES AND COARSE IN LOWER LOBES. PATIENT CONTINUED TO HAVE MODERATE AMOUNT OF THICK, WHITE SECRETIONS FROM ETT. SPUTUM CULTURE SENT TO LAB. PATIENT DESATTED QUICKLY WITH REPOSITIONING AND TOOK SEVERAL MINUTES EACH TIME TO BRING SATS BACK UP. O2 NEEDS INCREASED THROUGHOUT MORNING AND DAY. PATIENT PRONED AND PLACED ON 100% FIO2. PATIENT THEN HAD TO BE CHANGED TO PC OF 13 FROM 15 AND PEEP OF 15 TO 17. PATIENT O2 SATURATIONS THEN STARTED TO STAY 90% AND ABOVE. PATIENT PLACED BACK ON PC OF 15 AND PEEP 15 SHORT TIME AGO AND HAS THUS FAR REMAINED SATTING WELL. RRS 20S TO 40S. PATIENT REMAINED IN SR TO ST WITH PACS. HR 80S TO LOW 100S. BP REMAINED STABLE ON LEVOPHED DRIP RANGING FROM 1 TO 4 MCG/ MINUTE. LEVOPHED CURRENTLY AT 2 MCG/ MINUTE. PATIENT DID NOT HAVE BM THIS SHIFT. PRN MIRALAX GIVEN. TF INFUSING AT GOAL RATE AT START OF SHIFT. TF TURNED OFF WHEN PATIENT PRONED. TF TO BE RESUMED WHEN PATIENT TURNED BACK SUPINE. RIVERS DRAINED 1730 MLS OF DARK VIOLETA COLORED URINE. NO CHANGE TO SKIN. BLOOD SUGARS 81 AND 66 THIS SHIFT. PATIENT GIVEN 1/2 AMP D50 AND D5 1/2 NS STARTED UNTIL TF ABLE TO BE RESUMED. NS TKO. LR INFUSING AT 100 MLS/ HOUR. PROPOFOL AT 40 MCG/ KG/ MINUTE. PATIENT RECEIVED KPHOS AND MAG FOR REPLACEMENTS THIS AM. PATIENT TO BE TURNED BACK SUPINE AT SHIFT CHANGE. PATIENT'S SISTER AND EX- IN TO VISIT TODAY. SISTER STATED THAT IT IS OKAY FOR EX- TO COME IN AND VISIT PATIENT. PATIENT HAS NO SIGNS OF PAIN OR DISCOMFORT AT THIS TIME. BED LOW, CALL LIGHT IN REACH. WILL CONTINUE TO MONITOR PATIENT UNTIL REPORT GIVEN TO ONCOMING DINKEY ENGINE FIRER NURSE SHORTLY.
--- NOTE | 2019-10-17 21:39 | NUR ---
ASSUMPTION OF CARE: PT PRONE AT BEGINNING OF SHIFT. AT SHIFT CHANGE PT REPOSITIONED TO SUPINE. PT TOLERATED WELL. NO EPISODE OF DESATS. INTUBATED AND SEDATED. WILL GRIMACE WITH STIMULI SUCH ORAL CARE. WHILE PRONE LUNG SOUNDS COARSE THROUGHOUT. ONCE PT REPOSITIONED TO SUPINE, PT WAS SUCTIONED AND LUNG SOUNDS BECAME CLEARER. SETTINGS ARE AC 20, PC 15, PEEP 15, FIO2 90%. IN SR WITH OCC PACS. PT ON CTF WHILE SUPINE, HOWEVER ON HOLD WHILE PRONE. PT HAS TEMP RIVERS IN PLACE DRAINING CLEAR YELLOW URINE. 20 G IN R AND L FA-SALINE LOCKED AND PATENT. RIJ IN PLACE INF. PROPOFOL AT 40MCG, LEVOPHED AT 2MCG, D5 1/2NS AT 75 ML/HR (WILL TURN OFF WHEN TF IS AT GOAL OF 30 ML/HR.), NS AT TKO, LR ANT 100ML/HR.
--- NOTE | 2019-10-18 03:45 | NUR ---
ATTEMPTED SEDATION VACATION ON PT. PROPOFOL TO 20MCG FROM 40MCG. PT DID NOT TOLERATE WELL. HR JUMPED INTO 150S AND FIO2 DROPPED TO 80%. PT ATTEMPTED TO OPEN EYES WHEN ASKED. HOWEVER WAS NOT ABLE TO FOLLOW ANY OTHER COMMANDS. SEDATION RESUMED AND PROPOFOL TURNED BACK UP TO 40MCG. WILL CONTINUE TO MONITOR.
[2019-10-18 03:46] LABS: BASOPHILS ABSOLUTE AUTO 0.08 K/mm3 (0.00-0.23); BASOPHILS PERCENT AUTO 1 % (0-2); EOSINOPHILS ABSOLUTE AUTO 0.92 K/mm3 (0.00-0.68); EOSINOPHILS PERCENT AUTO 6 % (0-6); Hematocrit 31.6 % (33.0-51.0); Hemoglobin 10.1 g/dL (11.5-16.0); IMMATURE GRAN ABSOLUTE AUTO 0.39 K/mm3 (0.00-0.10); IMMATURE GRAN PERCENT AUTO 3 % (0-1); LYMPHOCYTES ABSOLUTE AUTO 0.96 K/mm3 (0.84-5.20); LYMPHOCYTES PERCENT AUTO 7 % (21-46); MONOCYTES ABSOLUTE AUTO 0.83 K/mm3 (0.16-1.47); MONOCYTES PERCENT AUTO 6 % (4-13); Mean Corpuscular HGB 34.8 pg (26.0-34.0); Mean Corpuscular Volume 109 fL (80-100); Mean Platelet Volume 9.6 fL (9.1-12.4); NEUTROPHILS ABSOLUTE AUTO 11.27 K/mm3 (1.96-9.15); NEUTROPHILS PERCENT AUTO 78 % (41-73); Platelet Count 265 K/mm3 (150-400); RDW Coefficient Variation 16.6 % (11.7-14.2); White Blood Cell Count 14.45 K/mm3 (4.00-11.30)
[2019-10-18 04:06] LABS: Alanine Aminotransfer (ALT/SGP 22 U/L (12-78); Albumin, Blood 1.2 g/dL (3.4-5.0); Albumin/Globulin Ratio 0.3 (0.8-1.8); Alk Phos 246 U/L (50-136); Anion Gap 6 mmol/L (6-16); Aspartate Aminotrans (AST/SGOT 75 U/L (12-37); Bilirubin, Total 1.1 mg/dL (0.1-1.0); Blood Urea Nitrogen 5 mg/dL (8-24); Bun/Creatinine Ratio 16.1 (12.0-20.0); CO2, Blood 26 mmol/L (21-32); Calcium, Blood 7.8 mg/dL (8.5-10.1); Chloride, Blood 108 mmol/L (98-108); Creatinine, Blood 0.31 mg/dL (0.40-1.00); Globulin, Blood 3.7 g/dL (2.2-4.0); Glomerular Filtration Rate >60 (60-); Glucose, Blood 88 mg/dL (70-99); Magnesium, Blood 1.9 mg/dL (1.6-2.4); Phosphorus, Blood 2.4 mg/dL (2.5-4.9); Potassium, Blood 3.7 mmol/L (3.5-5.5); Sodium, Blood 140 mmol/L (136-145); Total Protein, Blood 4.9 g/dL (6.4-8.2)
[2019-10-18 05:27] LABS: PCO2 Arterial 42.1 mmHg (35-45); PO2 Arterial 59.7 mmHg (80-100); pH Blood Arterial 7.41 (7.35-7.45)
[2019-10-18 06:06] LABS: Troponin I 0.102 ng/mL (0.000-0.040)
--- NOTE | 2019-10-18 06:10 | NUR ---
SHIFT SUMMARY: REMAINS INTUBATED AND SEDATED. WILL GRIMACE TO PAIN OR NOXIOUS STIMULI. SEDATION VACATION DONE, PROPOFOL TURNED DOWN TO 20MCG, AND PT TOLERATED POORLY, HR INTO 150S AND FIO2 INTO THE 80S. PT SATS DROPPED WITH REPOSITIONING WELL. TAKES PT SOME TIME TO RECOVER FROM STIMULATION VENT SETTINGS: AC 20, PRESSURE CONTROL AT 15, PEEP 15, FIO2 90%. SPO2 BETWEEN 80-95% MAJORITY OF SHIFT. SBP STABLE IN THE 90S, HR BETWEEN 9-110 IXCEPT WITH REPOSITIONING. MAJORITY OF SHIFT PT IN SR WITH OCC PACS AND PVC. AROUND 0545 EKG PERFORMED SHOWING PT WITH NEW ONSET R BBB. DR BECERRA NOTIFIED AND CARDIAC ENZYMES ORDERED. PT HAS OG IN PLACE WITH CONT TF AT GOAL OF 30 MLS.HR. CHEM BG HAVE REMAINED LOW-NORMAL. LAST CHEM BG 88. D51/2NS REMAINED ON WITH TF. RIVERS IN PLACE DRAINING CLEAR YELLOW URINE. 20G IN R AND L FA-SL AND PATENT. R IJ INFUSING WITH PROPOFOL 40MCG, LEVOPHED 2MCG, LR AT 100ML/HR, NS TKO, D5 1/2 NS AT 75 ML/HR.
--- NOTE | 2019-10-18 07:00 | NUR ---
ASSUMED CARE NOTE: ASSUMED CARE OF PT @ 0700, RECEIVED REPORT FROM RAMY BRICENO. PT SEDATED AND INTUBATED WITH VENT SETTINGS @ AC20, Pi15, AND PEEP 15, WITH FIO2 OF 90%. PT HAS IRREGULAR RHYTHYM WITH PVC'S AND BBB. PT ON LEVOPHED OF 2MCG/MIN, SBP AT 90. ALL PERIPHERAL PULSES THREADY AND WEAK. TUBE FEED RUNNING AT GOAL OF 30ML, WITH NO RESIDUALS. RIVERS PATENT AND DRAINING CLEAR YELLOW URINE. WILL MONITOR PT T/O SHIFT.
--- NOTE | 2019-10-18 07:57 | NUR ---
UPDATE: PT SP02 SATURATION DROPPED INTO THE 80%, FiO2 INCREASED TO 100%, SPO2 @ 93%. PT HAS HAD SHORT RUNS OF V-TACH, AND APPROX. 30 PCV'S A MIN, CALLED. ORDERS GIVEN TO HOLD LASIX AND GIVE POTASSIUM PER EMAR. SISTER NBA AT BEDSIDE, SISTER NELLIE (NEXT OF KIN) GAVE PERMISSION FOR NBA TO BE ABLE TO RECEIVE PT'S MEDICAL INFORMATION. LR ON STAND-BY, PROPOFOL @ 40MCG/KG/MIN, LEVOPHED 2MCG/MIN.
--- NOTE | 2019-10-18 12:02 | NUR ---
Called to meet with patients sister who is her next of kin decision maker. Review of the patients life and health for the past few years. Pt , her took her pets from her. Sister states pt has long history of substance abuse and dysfunction. She states no suicidal exprssions from the past but history of depession and shutting down. Sister states she has stayed with her for brief visits. Her sister is homeless and in transitional housing. Ask sister if she had questions about her care and prognosis. She had questions about life with a trach. Review of process and rehab and future care need. Kept discussion minimal and gentle. Her sister is tearfull. She is willing to step up and be her advocate and decision maker. Just great sadness. Pt sister feels she would not want to prolong her life if she declines more and would not want a trach. Advised phsycians with help with decision, encouraged her to speak with her siblings if they are supportive and let them help with the burder of kira. will review case with [facility] for physician support.
--- NOTE | 2019-10-18 12:56 | NUR ---
1100: RR 30'S, Vt'S 500'S, PRECEDEX INITIATED, WILL TITRATE PER ORDERS. 1200: PRECEDEX 0.6MCG, NIMBEX INFUSION INITIATED AT 2MCG. RR 25. 1245: DNR ORDER RECEIVED AFTER PT'S SISTER (ROSALBA) SPOKE WITH PALLIATIVE CARE. TOF 0/4, NIMBEX DECREASED TO 1.5MCG. RR 20, Vt 240'S, VENT SETTINGS AC 20, PC 15, PEEP 15, FIO2 100%, RT AT BEDSIDE TO ADJUST.
--- NOTE | 2019-10-18 13:03 | NUR ---
VENT SETTINGS AC 20, PC 25, PEEP 15, FIO2 100%, Vt 340, RR 20, SPO2 93%. DR. WALKER AWARE OF CHANGES. TOF 0/4, NIMBEX DECREASED TO 1MCG.
[2019-10-18 14:26] LABS: Base Excess Venous 0.3 mmol/L; Bicarbonate Venous 23.5 mmol/L (24.0-30.0); PCO2 Venous 72.7 mmHg (38-42); PO2 Venous 65.5 mmHg (38-42)
--- NOTE | 2019-10-18 16:07 | NUR ---
UPDATE: LEVOPHED @ 5MCG/MIN, DUE TO A DECREASE IN SBP. PROPOFOL DECREASED TO 35MCG/KG/MIN. PT FiO2 DECREASED TO 95% PER , CURRENT VENT SETTINGS: AC20, PC25, PEEP 15, FiO2 95%
--- NOTE | 2019-10-18 17:59 | NUR ---
SHIFT SUMMARY: PT REMAINS INTUBATED AND SEDATED, PROPOFOL AT 35MCG/KG/MIN, PRECEDEX @ 0.6MCG/KG/HR. PT WAS PLACED ON NIMBEX DURING SHIFT IN ORDER TO IMPROVE VENT COMPLIANCE. NIMBEX CURRENTLY @ 1MCG/KG/MIN, TOF 2/4. VENT SETTINGS @ AC26/PC25/15PEEP, RR @ 26. VITAL HP TF RUINNING AT GOAL OF 30ML/HR, TUBING AND FEED CHANGED DURING SHIFT, CBG CHECKED Q2HR UNTIL STABLE, PT IS NOW ON Q6H CBG .PT WAS AFEBRILE FOR THE MAJORITY OF THE SHIFT. PT IN SINUS RHYTHM WITH PVC'S HR BETWEEN 80-110 . LEVOPHED RUNNING @ 6MCG/MIN, DUE TO MAP BELOW 65. PT IS HAVING GOOD URINE OUTPUT SINCE THE INITIATION OF LASIX. RIVERS PATENT AND DRAINING CLEAR YELLOW URINE. WILL CONTINUE TO MONITOR PT UNTIL REPORT IS GIVEN TO ONCOMING SHIFT.
[2019-10-18 18:00] LABS: Base Excess Venous 1.3 mmol/L; Bicarbonate Venous 24.7 mmol/L (24.0-30.0); PCO2 Venous 61.3 mmHg (38-42); PO2 Venous 64.3 mmHg (38-42)
[2019-10-18 18:01] LABS: pH Blood Venous 7.27 (7.34-7.37)
--- NOTE | 2019-10-18 18:26 | NUR ---
PT CONTINUES TO DESAT WITH ETT SUCTIONING AND REPOSITIONING, RECOVERS FAIRLY QUICKLY WITH REST. SCANT SECRETIONS FROM ETT. LS COARSE T/O, SPO2 90-93% ON VENT SETTINGS. HR IRREGULAR SINUS WITH MANY PVC'S, INTERMITTENLY AND FLEETINGLY TACHYCARDIC AT TIMES. SMALL BM X1 THIS SHIFT, GOOD URINE OUTPUT. ANASARCA REMAINS.
--- NOTE | 2019-10-18 18:39 | NUR ---
DR. WALKER NOTIFIED OF VBG RESULTS, NEW ORDER RECIEVED TO INCREASE VENT RR TO 30, RT NOTIFIED. NEW VENT SETTINGS AC 30, PC 25, PEEP 15, FIO2 95%.
--- NOTE | 2019-10-18 20:30 | NUR ---
PT INTUBATED AND SEDATED WITH PROPOFOL AND PRECEDEX. PT IS ALSO ON NIMBEX FOR VENT COMPLIANCE. PT IS BREATHING AT 30 BREATHS/MIN WHICH IS WHAT IT IS SET AT. TRAIN OF 4 WAS 4/4 SO NIMBEX WAS TITRATED UP PER ORDERS. PT IS ALSO ON LEVOPHED THAT IS BEING TITRATED. SEE ICU FLOWSHEET. SISTER WAS HERE BRIEFLY TONIGHT THEN LEFT.
--- NOTE | 2019-10-18 23:59 | NUR ---
PT INTUBATED AND SEDATED WITH PROPOFOL AND PRECEDEX. PT IS ON NIMBEX WELL. HAVE BEEN TITRATING TO KEEP TRAIN OF 4 2/4. LEVOPHED ALSO BEING TITRATED. PT IS TOLERATING THE VENT WELL.
[2019-10-19 03:34] LABS: Hematocrit 33.4 % (33.0-51.0); Hemoglobin 10.4 g/dL (11.5-16.0); Mean Corpuscular HGB 34.8 pg (26.0-34.0); Mean Corpuscular HGB Conc 31.1 g/dL (31.5-36.5); Mean Corpuscular Volume 112 fL (80-100); Mean Platelet Volume 9.4 fL (9.1-12.4); Platelet Count 329 K/mm3 (150-400); RDW Coefficient Variation 16.6 % (11.7-14.2); RDW Standard Deviation 68.9 fL (35.1-46.3); Red Blood Cell Count 2.99 M/mm3 (3.80-5.20); White Blood Cell Count 15.85 K/mm3 (4.00-11.30)
[2019-10-19 03:52] LABS: Alanine Aminotransfer (ALT/SGP 30 U/L (12-78); Albumin, Blood 1.2 g/dL (3.4-5.0); Albumin/Globulin Ratio 0.3 (0.8-1.8); Alk Phos 265 U/L (50-136); Anion Gap 5 mmol/L (6-16); Aspartate Aminotrans (AST/SGOT 89 U/L (12-37); Bilirubin, Total 0.8 mg/dL (0.1-1.0); Blood Urea Nitrogen 6 mg/dL (8-24); Bun/Creatinine Ratio 16.5 (12.0-20.0); CO2, Blood 28 mmol/L (21-32); Calcium, Blood 7.8 mg/dL (8.5-10.1); Chloride, Blood 110 mmol/L (98-108); Creatinine, Blood 0.36 mg/dL (0.40-1.00); Globulin, Blood 3.9 g/dL (2.2-4.0); Glomerular Filtration Rate >60 (60-); Glucose, Blood 96 mg/dL (70-99); Potassium, Blood 3.9 mmol/L (3.5-5.5); Sodium, Blood 143 mmol/L (136-145); Total Protein, Blood 5.1 g/dL (6.4-8.2)
[2019-10-19 03:53] LABS: BASOPHILS ABSOLUTE MAN 0.15 K/mm3 (0.00-0.23); BASOPHILS PERCENT MAN 1 % (0-2); EOSINOPHILS ABSOLUTE MAN 0.95 K/mm3 (0.00-0.68); EOSINOPHILS PERCENT MAN 6 % (0-6); LYMPHOCYTES PERCENT MAN 7 % (21-46); METAMYELOCYTE ABSOLUTE MAN 0.63 K/mm3 (0.00-0.00); METAMYELOCYTE PERCENT MAN 4 % (0-0); MONOCYTES ABSOLUTE MAN 0.31 K/mm3 (0.16-1.47); MONOCYTES PERCENT MAN 2 % (4-13); MYELOCYTE ABSOLUTE MAN 0.47 K/mm3 (0.00-0.00); MYELOCYTE PERCENT MAN 3 % (0-0); SEG NEUTROPHILS PERCENT MAN 77 % (41-73); TOTAL CELLS COUNTED 100
--- NOTE | 2019-10-19 05:53 | NUR ---
SUMMARY PT INTUBATED AND SEDATED WITH PROPOFOL AND PRECEDEX. ON NIMBEX TO INCEASE COMPLIANCE WITH THE VENT. MONITORING TRAIN OF 4. FIO2 HAS BEEN TITRATED DOWN TO 75%. LEVOPHED GTT REMAINS AT 6 MCG/MIN. PT HAS TEMP, HAVE COVERS OFF AND FAN ON PT. DIURESED WELL WITH 2L OFF THIS SHIFT. TOLERATING TUBE FEED WITH NO ISSUES. WILL REPORT TO DAY RN.
--- NOTE | 2019-10-19 07:00 | NUR ---
ASSUMED CARE NOTE: ASSUMED CARE AT 0700, RECEVIED REPORT FROM CAITLYN BRICENO. PT ON VENT WITH SETTINGS AT AC30/PC25/PEEP15/FiO2 75%, RR AT 30, SP02 93%. PT ON PROPOFOL @ 35MCG/KG/MIN, PRECEDEX @ 0.6MCG/KG/HR. PT ON NIMBEX @ 1.5MCG/KG/MIN, TOF 4/4, TITRATING PER ORDERS. SBP IN THE 80'S, MAP ABOVE 65, LEVOPHED @ 6MCG/MIN. PT IN SINUS ARRYTHMIA WITH HR IN THE 90'S. PT TEMP TO 101.0, FAN ON, ROOM COOLED, BLANKETS OFF. WILL ASK FOR MEDICATION TO LOWER FEVER. RIVESR PATENT AND DRAINING CLEAR YELLOW URINE. WILL CONTINUE TO MONITOR PT T/O SHIFT.
--- NOTE | 2019-10-19 09:56 | NUR ---
UPDATE NOTE: 0830: @ BEDSIDE, Fi02 DECREASED TO 70%. DR. WALKER WANTS A PICC LINE, IN ORDER TO TAKE CENTRAL LINE OUT. DR. WALKER OKAYED FOR PERIPHERAL LINES TO STAY IN PLACE LONG THEY ARE PATENT. PLAN IS TO DRAW BLOOD CULTURES AND VBG. GOAL FOR SPO2 IS 88%. 0920: SPO2 DROPPED INTO THE 84%, FiO2 INCREASED TO 75%, RT NOTIFIED, SPO2 INCREASED TO 90%. 0955: TEMP INCREASED TO 102.0 ICE PACKS PLACED ON PT TO RECDUCE FEVER.
[2019-10-19 10:38] LABS: Base Excess Venous 0.9 mmol/L; Bicarbonate Venous 24.5 mmol/L (24.0-30.0); PCO2 Venous 54.3 mmHg (38-42); PO2 Venous 65.5 mmHg (38-42); pH Blood Venous 7.31 (7.34-7.37)
--- NOTE | 2019-10-19 18:22 | NUR ---
SHIFT SUMMARY: PT CONTINUES TO BE ON THE VENT WITH SETTINGS @ AC30/PC25/PEEP15/FiO2 85%, RR @ 30. NO SECREATIONS NOTED, SPO2 AT 90%. PT CONTINUES TO BE ON 35MCG/KG/MIN OF PROPOFOL, PRECEDEX @ 0.6MCG/KG/HR, NIMBEX @ 2MCG/KG/MIN TOF 4/4. LEVOPHED IS BEING TITRATED UP DUE TO LOW MAP READINGS. LEVOPHED CURRENTLY @ 8MCG/MIN. AARON WAS CALLED AROUND 1700, TO REPORT FLUID BALANCE. ORDERS WERE GIVEN TO GIVE ONE TIME DOSE OF LASIX. RIVERS PATENT AND DRAINING WELL. PT'S TEMP HAS BEEN ELEVATING, LAST TEMP WAS 102.0, PT MEDICATED PER EMAR, ICE PACKS IN PLACE. PT REPOSITIONED Q2H TO PREVENT SKIN BREAKDOWN. WILL CONTINUE TO MONITOR PT UNTIL REPORT IS GIVEN TO NEXT SHIFT.
[2019-10-20 04:49] LABS: Hematocrit 35.8 % (33.0-51.0); Hemoglobin 10.9 g/dL (11.5-16.0); Mean Corpuscular HGB 34.4 pg (26.0-34.0); Mean Corpuscular HGB Conc 30.4 g/dL (31.5-36.5); Mean Corpuscular Volume 113 fL (80-100); Mean Platelet Volume 9.7 fL (9.1-12.4); NRBC ABSOLUTE 0.05 K/mm3 (0.00-0.02); NRBC Auto 0.2 /100 WBC (0.0-0.2); Platelet Count 399 K/mm3 (150-400); RDW Coefficient Variation 16.7 % (11.7-14.2); RDW Standard Deviation 71.5 fL (35.1-46.3); Red Blood Cell Count 3.17 M/mm3 (3.80-5.20); White Blood Cell Count 21.81 K/mm3 (4.00-11.30)
[2019-10-20 05:07] LABS: Anion Gap 5 mmol/L (6-16); Blood Urea Nitrogen 13 mg/dL (8-24); CO2, Blood 26 mmol/L (21-32); Calcium, Blood 7.7 mg/dL (8.5-10.1); Chloride, Blood 108 mmol/L (98-108); Creatinine, Blood 0.46 mg/dL (0.40-1.00); Glomerular Filtration Rate >60 (60-); Glucose, Blood 121 mg/dL (70-99); Potassium, Blood 4.2 mmol/L (3.5-5.5); Sodium, Blood 139 mmol/L (136-145)
[2019-10-20 05:23] LABS: BAND PERCENT MAN 1 % (0-8); BASOPHILS ABSOLUTE MAN 0.21 K/mm3 (0.00-0.23); BASOPHILS PERCENT MAN 1 % (0-2); EOSINOPHILS PERCENT MAN 6 % (0-6); LYMPHOCYTES ABSOLUTE MAN 2.61 K/mm3 (0.84-5.20); LYMPHOCYTES PERCENT MAN 12 % (21-46); METAMYELOCYTE ABSOLUTE MAN 1.09 K/mm3 (0.00-0.00); METAMYELOCYTE PERCENT MAN 5 % (0-0); MONOCYTES PERCENT MAN 6 % (4-13); MYELOCYTE ABSOLUTE MAN 0.43 K/mm3 (0.00-0.00); MYELOCYTE PERCENT MAN 2 % (0-0); NEUTROPHILS ABSOLUTE MAN 14.83 K/mm3 (1.96-9.15); SEG NEUTROPHILS PERCENT MAN 67 % (41-73); TOTAL CELLS COUNTED 100
--- NOTE | 2019-10-20 05:33 | NUR ---
SHIFT SUMMARY TEMPERATURE HAS NOT RESPONDED TO TYLENOL, WAS STARTED @ 04:30 ON A COOLING BLANKET. IV DRIPS HAVE BEEN MAINTAINED. LEVOPHED WAS INCREASED, CURRENTLY @ 18 MCG/MIN TO MAINTAIN MAP > 65. VENTILATOR SETTING REMAIN UNCHANGED. HR REMAINS 90-110 IN A SINUS ARRHYTHMIA. BATH COMPLETED ON MY SHIFT. WILL CONTINUE TO MONITOR.
--- NOTE | 2019-10-20 07:00 | NUR ---
ASSUMED CARE NOTE: ASSUMED CARE OF PT AT 0700, RECEVIED REPORT FROM KATHRYN BRICENO. PT ON VENT WITH SETTINGS @ AC30, PC25,PEEP 15, FiO2 85%, SPO2 ABOVE 90%. PT MAP ABOVE 65, WITH LEVOPHED @ 20MCG/MIN. PT IN SINUS ARRYTHMIA WITH HR BETWWEN 80-110. PT SEDATED WITH PROPOFOL @ 25MCG/KG/MIN, PRECEDEX @ 0.6MCG/KG/HR. PT IS ON NIMBEX FOR VENT COMPLIANCE, CURRENTLY @ 2MCG/KG/MIN, TOF 4/4, BIS MONITOR READING OF 35. PT TEMP IS 102.0, COOLING BLANKET IN PLACE AND SET TO 98.6.
--- NOTE | 2019-10-20 09:49 | NUR ---
UPDATE NOTE: 0820: TEMP CONTINUES TO RISE, MEDICATED FOR FEVER PER EMAR. 0930: PHYSICAN AT BEDSIDE. PHYSICAN CONTACTED FAMILY. ORDERS GIVEN TO PLACE PT ON COMFORT MEASURES. TEMP IS COMING DOWN, CURRENTLY 99.5. ELICEO Rodriguez.
--- NOTE | 2019-10-20 11:36 | NUR ---
pt extubated and . family at bedside. requested chaplian. family want help in deciding on funneral home. they lack financial means. pt purse and belongins give to sister. they asked we dispose of meds and soiled clothing.
--- NOTE | 2019-10-20 11:55 | NUR ---
Called in to provide prayer and emotional support for family. Sister, Alejandra, had gone home, but I called her. She responded well to gentle bereavement weight loss counselor and comfort. Prayer provided at [facility] for Emilie. Family has selected [facility] directors for arrangements. Family expressed gratitude for compassionate care by [facility] staff. Gave family my contact information for potential weight loss counselor.
--- NOTE | 2019-10-20 12:03 | NUR ---
FINAL DISCHARGE: DISCUSSED PT CONDITION W/ FAMILY, NEXT OF KIN DECIDED TO PLACE PT IN COMFORT CARE. NIMBEX WAS TURNED OFF AT 0930. PROPOFOL WAS INCREASED TO 50MCG PER ORDERS. FENTYNAL WAS ORDERED AND GIVEN RIGHT BEFORE EXTUBATION. FAMILY AT BEDSIDE. WHEN PT WAS EXTUBATED, PT HR BEGAN TO DROP, PT THEN BECAME PULSELESS. TOD 1117. DONOR BANK WAS NOTIFIED, AWAITING CALL BACK. FAMILY AT BEDSIDE.
--- NOTE | 2019-10-20 15:29 | NUR ---
1440: IV'S, PICC, AND RIVERS REMOVED. PT TO [facility] DIRECTORS AT THIS TIME WITH DENTURES. BELONGING SENT HOME WITH PT'S SISTER, HOME MEDICATIONS SENT TO PHARMACY FOR DISPOSAL PER PT'S SISTER'S REQUEST.
== END 2019-10-20 14:40 | DRG 870 ==
LOC: ER 13:22 → ICUE 18:22 → MEDS 18:22 → ICUE 10-14 05:37
PROVIDERS: Emergency Medicine; Internal Medicine; Internal Medicine Critical Care Medicine; ADMIT Family Medicine
PROC: 02HV33Z Insertion of Infusion Device into Superior Vena Cava, Percutaneous Approach (ICD-10-PCS; 2019-09-20)
PROC: 3E043XZ Introduction of Vasopressor into Central Vein, Percutaneous Approach (ICD-10-PCS; 2019-09-20)
PROC: 3E02340 Introduction of Influenza Vaccine into Muscle, Percutaneous Approach (ICD-10-PCS; 2019-09-20)
PROC: 0BH17EZ Insertion of Endotracheal Airway into Trachea, Via Natural or Artificial Opening (ICD-10-PCS; principal; 2019-10-15)
PROC: 5A1955Z Respiratory Ventilation, Greater than 96 Consecutive Hours (ICD-10-PCS; 2019-10-15)
DX: A41.9 Sepsis, unspecified organism (principal); J18.9 Pneumonia, unspecified organism; R65.21 Severe sepsis with septic shock; J96.01 Acute respiratory failure with hypoxia; N39.0 Urinary tract infection, site not specified; R45.851 Suicidal ideations; I48.20 Chronic atrial fibrillation, unspecified; F33.3 Major depressive disorder, recurrent, severe with psychotic symptoms; R65.10 Systemic inflammatory response syndrome (SIRS) of non-infectious origin without acute organ dysfunction; Z23 Encounter for immunization; G47.33 Obstructive sleep apnea (adult) (pediatric); Y95 Nosocomial condition; R11.0 Nausea; G62.9 Polyneuropathy, unspecified; Z59.0 Homelessness; Z51.5 Encounter for palliative care; E03.9 Hypothyroidism, unspecified; I48.91 Unspecified atrial fibrillation; Z79.01 Long term (current) use of anticoagulants; E66.01 Morbid (severe) obesity due to excess calories; Z96.641 Presence of right artificial hip joint; Z87.891 Personal history of nicotine dependence; E87.6 Hypokalemia; K21.9 Gastro-esophageal reflux disease without esophagitis; F15.21 Other stimulant dependence, in remission; F11.11 Opioid abuse, in remission; F10.21 Alcohol dependence, in remission; Z78.1 Physical restraint status; I95.9 Hypotension, unspecified
CPT/HCPCS: 0099U; 31500; 31720; 36415; 36556; 36569; 36600; 51702; 71045; 71046; 73070; 80048; 80053; 80069; 81001; 82330; 82550; 82803; 82947; 83605; 83690; 83735; 83880; 84100; 84145; 84443; 84484; 85025; 85027; 87040; 87070; 87077; 87086; 87186; 87205; 90686; 93005; 93010; 93306; 94002; 94003; 94640; 94660; 94760; 94762; 96365; 96366; 96367; 96372-59; 97110; 97116; 97162; 97166; 97530; 97535; 98960; 99285-25; A9270-GY; C1751; C9113; G0008; G0480; J0456; J0696; J1650; J1940; J2020; J2060; J2185; J2704; J3010; J3475; J7030; J7040; J7042; J7050; J7060; J7120; Q3014